=== PATIENT | male | born 1940 | race Asian ===

== ENCOUNTER 2016-02-25 07:48 | Emergency (ER) | payer OTHER ==
[2016-02-25 08:02] VITALS: BP 150/92; PULSE 112; TEMP 99; BMI 26.3
--- NOTE | 2016-02-25 09:10 | PDOC ---
History of Present Illness - General History Source: Patient, Old Records Exam Limitations: Language Barrier (load manager phone used for HPI and physical examination) <TarunottonielJodee - Last Filed: 02/25/16 11:02> - General History Source: Patient, Hand Mexican Food Maker Used Exam Limitations: No Limitations - History of Present Illness Initial Comments: 02/25/16 09:15 The patient is a 75 year old male, with no significant past medical history HTN , who presents today complaining of 1 day of difficulty urinating and lower abdominal pain. The patient states that his last urination was around midnight last night and felt it was difficult to push out. He denies dysuria. Prior to midnight he did not experience any urinary difficulty, but did feel lower abdominal pain. He states that he has experienced these symptoms 7 years ago, which led to prostate surgery. Denies fever, chills, nausea, vomiting. Denies back pain, flank pain. Denies chest pain, SOB. Allergies: None reported Social Hx: No tobacco use. No alcohol use. Medications: The patient states that he is on medication for his prostate and high blood pressure, but does not know the name of the medications. [facility] Nurse Practitioner ID: [id number] <Deborah Duncna - Last Filed: 02/25/16 11:49> - General Chief Complaint: Urinary Problem Stated Complaint: URINARY PROBLEM Time Seen by Provider: 02/25/16 08:47 Past History - Past Medical History Disorders: Yes (BPH) HTN: Yes - Psycho/Social/Smoking Cessation Hx Anxiety: No Suicidal Ideation: No Smoking History: Never smoked Have you smoked in the past 12 months: No Hx Alcohol Use: No Drug/Substance Use Hx: No Substance Use Type: None <Jodee Cheung - Last Filed: 02/25/16 11:02> <Deborah Duncan - Last Filed: 02/25/16 11:49> - Past Medical History Allergies/Adverse Reactions: Allergies Allergy/AdvReac Type Severity Reaction Status Date / Time No Known Allergies Allergy Verified 02/25/16 07:56 Home Medications: Ambulatory Orders Metoprolol Tartrate 25 mg PO DAILY 02/25/16 Valsartan/Hydrochlorothiazide [Valsartan-Hctz 80-12.5 mg Tab] 1 each PO DAILY Review of Systems - Review of Systems Able to Perform ROS?: Yes Comments:: 02/25/16 09:15 CONSTITUTIONAL: Absent: fever, no chills, no fatigue EYES: Absent: visual changes ENT: Absent: ear pain, no sore throat CARDIOVASCULAR: Absent: chest pain, no palpitations RESPIRATORY: Absent: cough, no SOB GI: Present: lower abdominal pain Absent: no nausea, no vomiting, no constipation, no diarrhea GENITOURINARY: Present: difficulty urinating Absent: dysuria, no frequency, no hematuria MUSCULOSKELETAL: Absent: back pain, no arthralgia, no myalgia SKIN: Absent: rash <Deborah Duncan - Last Filed: 02/25/16 11:49> *Physical Exam - Vital Signs Last Vital Signs Temp Pulse Resp BP Pulse Ox 99 F 112 H 16 150/92 93 L 02/25/16 07:57 02/25/16 07:57 02/25/16 07:57 02/25/16 07:57 02/25/16 07:57 <Jodee Cheung - Last Filed: 02/25/16 11:02> - Vital Signs Last Vital Signs Temp Pulse Resp BP Pulse Ox 99 F 112 H 16 150/92 93 L 02/25/16 07:57 02/25/16 07:57 02/25/16 07:57 02/25/16 07:57 02/25/16 07:57 - Physical Exam Comments: 02/25/16 09:16 GENERAL: Well-appearing, well-nourished. No apparent distress. HEENT: Normocephalic, atraumatic. PERRL, EOM intact. CARDIOVASCULAR: Normal S1, S2. Regular rate and rhythm. PULMONARY: Clear to auscultation bilaterally. ABDOMEN: Markedly distended bladder palpated at the level of the umbilicus. Soft, non- tender. RECTAL: Slightly decreased tone with brown stool. Prostate was not appreciated. EXTREMITIES: Trace to +1 bipedal edema. Normal ROM in all four extremities. No gross deformities. SKIN: Warm, dry. No rash NEUROLOGICAL: No focal neurological deficits. <Deborah Duncan - Last Filed: 02/25/16 11:49> ED Treatment Course - LABORATORY CBC & Chemistry Diagram: 02/25/16 09:30 02/25/16 09:30 <Jodee Cheung Last Filed: 02/25/16 11:02> - LABORATORY CBC & Chemistry Diagram: 02/25/16 09:30 02/25/16 09:30 <Deborah Duncan - Last Filed: 02/25/16 11:49> Medical Decision Making - Medical Decision Making 02/25/16 09:12 75-year-old male with history of hypertension and prostate disease in the past presents to the emergency Department with complaints of inability to urinate since midnight and lower abdominal pain. His bladder is distended. Differential diagnosis includes but is not limited to: Urinary retention secondary to prostatic enlargement, malignancy, BPH, UTI, renal failure. Plan: 1. Insert Centeno catheter 2. Urine analysis and urine culture 3. Labs 4. Pain management as needed 5. Observe and reevaluate 02/25/16 11:04 Addendum: Centeno catheter was inserted with 600 mL of urine output. The patient is feeling relieved. I've used the load manager hotline with a Yoruba fairing man to explain all of the patient's labs and urine analysis results with him. I've given him discharge instructions which include the fact that we are sending him home with a Centeno catheter in place and a leg bag. We discussed his follow-up with the urologist and decided that he would get a urologist through his primary care physician as he preferred a Yoruba speaking physician. I've advised the patient to follow-up with the urologist within 4-6 weeks and to return to the emergency department if his symptoms persist, worsen, or new symptoms arise. <Jodee Cheung - Last Filed: 02/25/16 11:02> - Medical Decision Making 02/25/16 11:11 Dr. Cheung utilized the load manager phones - Hand Mexican Food Maker [id number]- when reassessing the patient. The load manager phone - Hand Mexican Food Maker [id number]- was used when discharging the patient. <Deborah Duncan - Last Filed: 02/25/16 11:49> *DC/Admit/Observation/Transfer - Discharge Dispostion Admit: No - Attestations Physician Attestion: 02/25/16 09:13 I, Dr. Jodee Cheung, attest that the scribes documentation that appears above has been prepared under my direction and personally reviewed by me in its entirety. I confirmed that the note above accurately reflects all work, treatment, procedures, and medical decision-making performed by me. <Jodee Cheung - Last Filed: 02/25/16 11:02> - Attestations Scribe Attestion: 02/25/16 09:16 Documentation prepared by GRZEGORZ Yeager, acting as medical microbiologist for Jodee Cheung MD. <Deborah Duncan - Last Filed: 02/25/16 11:49> Diagnosis at time of Disposition: Urinary retention - Discharge Dispostion Disposition: HOME Condition at time of disposition: Stable - Referrals Referrals: Tanner Jackson MD [Primary Care Provider] - - Patient Instructions Printed Discharge Instructions: DI for Urinary Retention in Men, DI for Constipation Additional Instructions: You have urinary retention. You had a Centeno catheter in your penis in order to help you urinate. Leave the catheter in until you follow-up with her urologist. Please call your primary care physician for a referral to your urologist. Return to the emergency department if you have any symptoms that are persistent , worsen, or new symptoms arise. For your constipation please increase the amount of fiber that you have in your diet; that is, he green leafy vegetables, fruits, and many foods that are high in fiber. He may take [id number] fiber aide such as Metamucil or you may use a Dulcolax suppository.
[2016-02-25 09:30] LABS: URINE APPEARANCE CLEAR; URINE BILIRUBIN NEGATIVE (NEGATIVE); URINE COLOR LTYELLOW; URINE GLUCOSE (UA) NEGATIVE (NEGATIVE); URINE KETONE TRACE (NEGATIVE); URINE LEUK ESTERASE NEGATIVE (NEGATIVE); URINE NITRITE NEGATIVE (NEGATIVE); URINE PROTEIN NEGATIVE (NEGATIVE); URINE UROBILINOGEN NEGATIVE E.U./dl (0.2-1.0)
[2016-02-25 09:31] LABS: URINE BLOOD 1+ (NEGATIVE)
[2016-02-25 09:33] LABS: URINE MUCUS RARE; URINE RBC 5 /hpf (0-3); URINE WBC 1 /hpf (3-5)
[2016-02-25 09:39] LABS: BASOPHIL 0.7 % (0-2.0); EOSINOPHIL 0.1 % (0-4.5); MCH 32.7 pg (25.7-33.7); MCHC 34.2 g/dl (32.0-35.9); MEAN CELL VOLUME 95.5 fl (80-96); NEUTROPHILS 83.3 % (42.8-82.8); PLATELET COUNT 118 K/MM3 (134-434); RDW 13.5 % (11.9-15.9); WHITE BLOOD COUNT 7.3 K/mm3 (4.0-10.0)
[2016-02-25 09:58] LABS: CALCIUM 8.1 mg/dL (8.5-10.1); CREATININE 0.9 mg/dL (0.7-1.3); MAGNESIUM 2.1 mg/dL (1.8-2.4); PHOSPHOROUS 2.9 mg/dL (2.5-4.9)
--- NOTE | 2016-02-26 11:04 | EKG ---
Test Reason : Blood Pressure : / mmHG Vent. Rate : 093 BPM Atrial Rate : 093 BPM P-R Int : 182 ms QRS Dur : 104 ms QT Int : 356 ms P-R-T Axes : 031 -18 008 degrees QTc Int : 442 ms NORMAL SINUS RHYTHM NORMAL ECG NO PREVIOUS ECGS AVAILABLE Confirmed by DARRIN VILLASENOR, CANDIDO ([id number]) on 02/26/2016 11:04:38 AM Referred By: Confirmed By:CANDIDO CLIFFORD MD
== END 2016-02-25 11:47 | disposition home or self-care (01) ==
LOC: JER 07:48
PROC: 0T9B70Z Drainage of Bladder with Drainage Device, Via Natural or Artificial Opening (ICD-10-PCS; principal; 2016-02-25)
DX: R33.9 Retention of urine, unspecified (principal); I10 Essential (primary) hypertension
CPT/HCPCS: 36415; 51702; 80048; 81003; 81015; 83735; 84100; 85025; 87086; 93005; 93010; 99283-25

== ENCOUNTER 2018-07-12 09:52 | Observation (INO) | payer OTHER ==
--- NOTE | 2018-07-12 10:49 | PDOC ---
History of Present Illness - General Chief Complaint: Injury Stated Complaint: SENT BY PCP/ FALL Time Seen by Provider: 07/12/18 10:39 History Source: Patient, Spouse Exam Limitations: Language Barrier - History of Present Illness Initial Comments: 07/12/18 11:22 78 yo Sami speaking M with PMhx of HTN , COPD, and BPH presents s/p syncopal episode on 07/08/18. He states he read a book and was sitting in a chair when he had a coughing spell and passed out. He loss consciousness and hit his head. He was unconscious for approx 3 min and when he awoke he knew where he was and what had happened. witnessed fall and denies convulsion or lip smacking. He denies loss of bowel or bladder function. This happened to him 2 yrs prior and was seen here. He did not seek medical attention at that time but he continued to be dizzy over the weekend and went today to see his PMD who sent him here. He denies recent travel, recent illness or sick contacts. Denies CP, SOB, abdominal pain, urinary symptoms, fever or chills. Timing/Duration: momentarily Severity: moderate Associated Symptoms: reports: headaches, syncope, weakness Past History - Travel Traveled outside of the country in the last 30 days: No Close contact w/someone who was outside of country & ill: No - Past Medical History Allergies/Adverse Reactions: Allergies Allergy/AdvReac Type Severity Reaction Status Date / Time No Known Allergies Allergy Verified 07/12/18 10:17 Home Medications: Ambulatory Orders Metoprolol Tartrate 25 mg PO DAILY 02/25/16 Valsartan/Hydrochlorothiazide [Valsartan-Hctz 80-12.5 mg Tab] 1 each PO DAILY COPD: Yes Disorders: Yes (BPH) HTN: Yes - Immunization History Immunization Up to Date: Yes - Suicide/Smoking/Psychosocial Hx Smoking Status: No Smoking History: Never smoked Have you smoked in the past 12 months: No Hx Alcohol Use: No Drug/Substance Use Hx: No Substance Use Type: None *Physical Exam - Vital Signs Last Vital Signs Temp Pulse Resp BP Pulse Ox 98.3 F 79 18 140/85 95 07/12/18 10:11 07/12/18 10:11 07/12/18 10:11 07/12/18 10:11 07/12/18 10:11 ED Treatment Course - LABORATORY CBC & Chemistry Diagram: 07/12/18 12:21 07/12/18 12:23 Medical Decision Making - Medical Decision Making 07/12/18 12:52 78 yo M with PMhx of HTN, COPD, and BPH s/p syncopal episode and trauma to head. - Will obtain head and cervical spine CT -Patient signed out to Dr. Esther Pierson for continuation of care. *DC/Admit/Observation/Transfer Diagnosis at time of Disposition: Syncope Qualifiers: Syncope type: unspecified Qualified Code(s): R55 - Syncope and collapse - Referrals Referrals: Santi Naranjo MD [Primary Care Provider] - - Patient Instructions - Post Discharge Activity
[2018-07-12 12:45] LABS: BASO % 1.1 % (0-2.0); EOS % 1.1 % (0-4.5); HEMATOCRIT 40.6 % (35.4-49); HEMOGLOBIN 13.8 GM/dL (11.7-16.9); LYMPH % 25.1 % (8-40); MCH 32.8 pg (25.7-33.7); MCHC 33.9 g/dl (32.0-35.9); MEAN CELL VOLUME 96.7 fl (80-96); MEAN PLT VOLUME 8.4 fl (7.5-11.1); MONO % 7.7 % (3.8-10.2); PLATELET COUNT 132 K/MM3 (134-434); RDW 13.9 % (11.9-15.9); WHITE BLOOD COUNT 5.1 K/mm3 (4.0-10.0)
[2018-07-12 13:01] LABS: INR 0.91 (0.83-1.09); PROTHROMBIN TIME (PATIENT) 10.7 SEC (9.7-13.0)
[2018-07-12 13:04] LABS: ACTIVATED PTT 31.5 SECONDS (25.2-36.5)
[2018-07-12 13:12] LABS: ALBUMIN 3.6 g/dl (3.4-5.0); BILIRUBIN,TOTAL 0.6 mg/dL (0.2-1); CALCIUM 8.4 mg/dL (8.5-10.1); CREATININE 0.9 mg/dL (0.55-1.3); MAGNESIUM 2.4 mg/dL (1.8-2.4); POTASSIUM 4.3 mmol/L (3.5-5.1); TOT PROT 6.8 g/dl (6.4-8.2)
--- NOTE | 2018-07-12 13:22 | PDOC ---
Documentation entered by León James SCRIBE, acting as scribe for Yehuda Munoz MD. Yehuda Munoz MD: This documentation has been prepared by the Erika smith Renju, SCRIBE, under my direction and personally reviewed by me in its entirety. I confirm that the documentation accurately reflects all work, treatment, procedures, and medical decision making performed by me. Attending Attestation - Resident Resident Name: Too Clark - ED Attending Attestation I have performed the following: I have examined & evaluated the patient, The case was reviewed & discussed with the resident, I agree w/resident's findings & plan, Exceptions are as noted - HPI HPI: 07/12/18 12:50 78yo M hx HTN, COPD, and BPH sent in by PCP for evaluation s/p witnessed (by ) syncopal episode on Wednesday07/08/18. Patient states he was reading a book when he had a coughing spell and subsequently passed out falling out of his chair on Wednesday. states pt had LOC for 3 minutes without convulsions or incontinence. Pt endorses a 3 day hx of lightheadedness and unsteady gait. Pt visited PCP this morning who prompted him to visit ED for further evaluation. Denies any recent surgeries. Denies CP, SOB, headache, focal weakness/numbness, abd pain, N/V/D, LE edema. PCP: Dr. Naranjo - Physicial Exam PE: 07/12/18 12:51 GENERAL: Awake, alert, and fully oriented, in no acute distress HEAD: +raccoon eyes EYES: PERRLA, EOMI, sclera anicteric, conjunctiva clear ENT: Auricles normal inspection, hearing grossly normal, nares patent, oropharynx clear without exudates. Moist mucosa NECK: Normal ROM, supple, no lymphadenopathy, JVD, or masses LUNGS: Breath sounds equal, clear to auscultation bilaterally. No wheezes, and no crackles HEART: Regular rate and rhythm, normal S1 and S2, no murmurs, rubs or gallops ABDOMEN: Soft, nontender, normoactive bowel sounds. No guarding, no rebound. No masses EXTREMITIES: Normal range of motion, no edema. No cords, erythema, or tenderness BACK: No midline spinal tenderness in cervical/thoracic/lumbar region NEUROLOGICAL: Normal speech, cranial nerves intact, negative pronator drift, 5/ 5 strength in all 4 extremities, normal sensation to light touch in all 4 extremities, slow, non shuffling gait SKIN: Warm, Dry, normal turgor, no rashes or lesions noted. - Medical Decision Making 07/12/18 12:27 78yo M hx HTN, COPD, BPH presents to the ED after 3 minute syncopal episode 3 days ago with persistent lightheadness, and gait unsteadiness since. Vitals wnl, exam neurologically intact although pt with raccoon eyes. Will get dedicated facial and temporal bone imaging in addition to CTH/C-spine Given prolonged LOC ~ 3 mins per , + concern for arrhythmia as well Pt also c/o persistent dizziness and unsteady gait since the fall which could be 2/2 metabolic disarray vs ischemia vs CVA Anticipate admission
--- NOTE | 2018-07-12 13:37 | PDOC ---
*Physical Exam - Vital Signs Last Vital Signs Temp Pulse Resp BP Pulse Ox 98.3 F 79 18 140/85 95 07/12/18 10:11 07/12/18 10:11 07/12/18 10:11 07/12/18 10:11 07/12/18 10:11 - Physical Exam Comments: 07/12/18 13:35 Patient's care endorsed to me by Dr. Clark at the end of his shift. Patient is a 78 YOM Uzbek-speaking patient with h/o BPH, HTN, and ?history of COPD who presents 3 days after syncopal episode and fall onto face in the setting of coughing spell. He was reportedly unconscious for 3 minutes. Patient has b/l periorbital ecchymosis and needs temporal/facial bone CT. Heart Score/ECG Review #1 07/12/18 12:27 Sinus shona, rate 57, normal axis, old TWI in III, TW flattening in aVF, new TWI in V123 ED Treatment Course - LABORATORY CBC & Chemistry Diagram: 07/12/18 12:21 07/12/18 12:23 - ADDITIONAL ORDERS Additional order review: Laboratory Results 07/12/18 07/12/18 07/12/18 12:23 12:21 12:21 PT with INR 10.70 INR 0.91 PTT (Actin FS) 31.5 Sodium 141 Potassium 4.3 Chloride 109 H Carbon Dioxide 28 Anion Gap 4 L BUN 15 Creatinine 0.9 Est GFR (CKD-EPI)AfAm 94.48 Est GFR (CKD-EPI)NonAf 81.52 Random Glucose 89 Calcium 8.4 L Magnesium 2.4 Total Bilirubin 0.6 AST 22 ALT 36 Alkaline Phosphatase 58 Troponin I < 0.02 Total Protein 6.8 Albumin 3.6 07/12/18 12:21 RBC 4.20 MCV 96.7 H MCHC 33.9 RDW 13.9 MPV 8.4 Neutrophils % 65.0 D Lymphocytes % 25.1 D Monocytes % 7.7 D Eosinophils % 1.1 D Basophils % 1.1 - RADIOLOGY Radiology Studies Ordered: Category Date Time Status FACIAL BONES CT W/O CONTRAST [CT] Stat CT Scan 07/12/18 13:[address] W/O CONTRAST [CT] Stat CT Scan 07/12/18 13:21 Ordered Medical Decision Making - Medical Decision Making EKG: Reviewed, new TWI compared with 2017. CT Head/C-spine shows nothing acute. CT Temporal/Facial bones shows opacified sinus/middle ear but no obvious fxr. 07/12/18 16:30 The Pt is unsafe for discharge at this time. They require further hospital observation, workup, and treatment. Microblog sent to [facility] for admission. Blank Decision to Admit order is placed per ED protocol. *DC/Admit/Observation/Transfer Diagnosis at time of Disposition: T wave inversion in EKG Syncope Qualifiers: Syncope type: unspecified Qualified Code(s): R55 - Syncope and collapse Facial trauma Qualifiers: Encounter type: initial encounter Qualified Code(s): S09.93XA - Unspecified injury of face, initial encounter - Discharge Dispostion Condition at time of disposition: Guarded Decision to Admit order: Yes - Referrals Referrals: Santi Naranjo MD [Primary Care Provider] - - Patient Instructions - Post Discharge Activity
--- NOTE | 2018-07-12 15:58 | EKG ---
Test Reason : Blood Pressure : / mmHG Vent. Rate : 057 BPM Atrial Rate : 057 BPM P-R Int : 180 ms QRS Dur : 088 ms QT Int : 422 ms P-R-T Axes : 065 -17 001 degrees QTc Int : 410 ms SINUS BRADYCARDIA ABNORMAL ECG WHEN COMPARED WITH ECG OF 25-FEB-2016 09:40, VENT. RATE HAS DECREASED BY 36 BPM Confirmed by Rigoberto Chu ([id number]) on 07/12/2018 3:57:38 PM Referred By: Confirmed By:Rigoberto Chu
[2018-07-12] MEDS ORDERED: ACETAMINOPHEN 325 MG TABLET (FP) PO PRN (17:13)
--- NOTE | 2018-07-12 17:23 | HP ---
Admitting History and Physical - Primary Care Physician PCP: Santi Naranjo - Admission Chief Complaint: dizziness, syncopal episode History of Present Illness: 78 year old M with h/o HTN and BPH who presents today complaining of syncopal episode which occurred on July 08. Mr. Solano reports being seated and watching TV when he began to experience dizziness for several seconds followed by LOC. Pt fell forward and hit his face. As per pt his states he was unconscious for approximately 3mins. He endorses a similar episode in 2014 when he presented to [facility] for evaluation due to a fall which he now states was related to feeling dizzy while pushing his shopping cart. Pt reports he has been experiencing "dizzy spells" on an almost daily basis over the last but has not lost consciousness. He has never been evaluated by neurology or cardiology. Patient denies headaches/N/V/D/seizure activity or speech impairments. Pt denies loss of bowel or bladder function. He denies recent travel, recent illness or sick contacts. Denies CP,SOB, abdominal pain, urinary symptoms, fever or chills. Due to persistent dizziness and unsteady gait, he decided to present to his PCP for evaluation. After relating incident to primary care provider, pt was encouraged to seek medical attention in the ED. In ED: Vitals were HR 88bpm, T 97.2, BP 143/97, RR 18, O2 sat 95%. Head CT negative. Facial CT: no fracture Labs: unremarkable Pt admitted for observation and further work-up. History Source: Patient (Thai phone [employer] used) Limitations to Obtaining History: Language Barrier - Past Medical History Cardiovascular: Yes: HTN - Past Surgical History Past Surgical History: Yes: None - Smoking History Smoking history: Former smoker (3cig per day x 3yrs while in [employer], d/ yury > 50yrs ago) Have you smoked in the past 12 months: No - Alcohol/Substance Use Hx Alcohol Use: No History of Substance Use: reports: None - Social History Usual Living Arrangement: Yes: With Spouse ADL: Family Assistance Occupation: Previously worked in [employer]. now retired History of Recent Travel: No Home Medications - Allergies Allergies/Adverse Reactions: Allergies Allergy/AdvReac Type Severity Reaction Status Date / Time No Known Allergies Allergy Verified 07/12/18 10:17 - Home Medications Home Medications: Ambulatory Orders Metoprolol Tartrate 25 mg PO DAILY 02/25/16 Valsartan/Hydrochlorothiazide [Valsartan-Hctz 80-12.5 mg Tab] 1 each PO DAILY Family Disease History - Family Disease History Family Disease History: Other: Father ( (58) "threw up blood and ") , Mother ( (75) depression), Brother ( (60) lung disease) Review of Systems - Review of Systems Constitutional: reports: No Symptoms Eyes: reports: No Symptoms HENT: reports: No Symptoms Neck: reports: No Symptoms Cardiovascular: reports: No Symptoms Respiratory: reports: No Symptoms Gastrointestinal: reports: No Symptoms Genitourinary: reports: No Symptoms Breasts: reports: No Symptoms Reported Musculoskeletal: reports: Muscle Weakness (Legs) Integumentary: reports: No Symptoms Neurological: reports: Dizziness, Syncope, Unsteady Gait Endocrine: reports: No Symptoms Hematology/Lymphatic: reports: No Symptoms Psychiatric: reports: No Symptoms Physical Examination Vital Signs: Vital Signs Temperature 97.6 F 07/12/18 16:35 Pulse Rate 59 L 07/12/18 16:35 Respiratory Rate 18 07/12/18 16:35 Blood Pressure 128/76 07/12/18 16:35 O2 Sat by Pulse Oximetry (%) 98 07/12/18 16:35 Constitutional: Yes: Well Nourished, No Distress, Calm Eyes: Yes: Conjunctiva Clear, EOM Intact, PERRL HENT: Yes: Normocephalic, Other (poor dentition, periorbital ecchymosis) Cardiovascular: Yes: Bradycardia, S1, S2 Respiratory: Yes: Regular, CTA Bilaterally Gastrointestinal: Yes: Normal Bowel Sounds, Soft ...Rectal Exam: Yes: Deferred Musculoskeletal: Yes: Muscle Weakness (poor tone and strength b/l LEs) Extremities: Yes: WNL Edema: No Peripheral Pulses WNL: Yes Peripheral Pulses: Left Radial: 2+, Right Radial: 2+, Left Doralis Pedis: 2+, Right Dorsalis Pedis: 2+ Integumentary: Yes: WNL Neurological: Yes: Alert, Oriented, Tremors (essential tremrs), Unsteady Gait, Weakness ...Motor Strength: LLE, RLE Psychiatric: Yes: Alert, Oriented Labs: CBC, BMP 07/12/18 12:21 07/12/18 12:23 Imaging - Results X-ray: Report Reviewed ( CXR 07/12/2018:Impression: No evidence of active pulmonary disease. Cardiomegaly. No pneumothorax, or large pleural effusion is seen. Reported By: Thomas Griffin MD 07/12/18 [id number]) Cat Scan: Report Reviewed (CT spine 07/12/2018 IMPRESSION: No fracture is identified. Similar to a [address] study there is almost complete opacification of the left mastoid air cells and partial opacification of the left middle ear cavity consistent with otomastoiditis - ? persistent versus recurrent in nature. Several subcutaneous linear metallic densities are seen bilaterally at the level of the lower posterior neck and partially imaged upper posterior chest. Correlate clinically.), Other ( CT Head 07/12 IMPRESSION: No CT evidence of acute intracranial pathology. There has been no definite interval change in comparison to a prior CT exam of 2014. Mild bilateral cerebellar atrophy. Note is again made of left otomastoiditis - ? persistent versus recurrent in nature. Correlate clinically. There is again visualization of several subcutaneous linear metallic densities along the parieto-occipital regions bilaterally - ? etiology. Reported By: Mehdi Sloan MD) EKG: Image Reviewed (EKG 07/12/2018 (my read) SB 57bpm TWI V1-3. normal axis.) Other: Report Reviewed (CT facial 07/12/2018 IMPRESSION: Evaluation of the left temporal bone demonstrates almost totally opacified left mastoid air cells and partial opacification of the left middle ear suspicious for mastoiditis and otitis media. Inner ear structures appear to be intact. No focal bone destruction or fracture is identified. Evaluation of the right temporal bone appears unremarkable. Reported By: Patrick Cobian MD 07/12/18 [id number]), Other ( CT Temporal bones 07/12/2018 IMPRESSION: Evaluation of the left temporal bone demonstrates almost totally opacified left mastoid air cells and partial opacification of the left middle ear suspicious for mastoiditis and otitis media. Inner ear structures appear to be intact. No focal bone destruction or fracture is identified. Evaluation of the right temporal bone appears unremarkable. Reported By: Patrick Cobian MD 07/12/18 0751) Problem List - Problems (1) ST segment changes on electrocardiogram Assessment/Plan: serial cardiac enzymes Routine echo cards consult start ASA 81mg daily Code(s): R94.31 - ABNORMAL ELECTROCARDIOGRAM [ECG] [EKG] (2) HTN (hypertension) Assessment/Plan: valsartan 80mg daily HCTZ 12.5mg daily hold metoprolol due to recent syncope cardiac diet Code(s): I10 - ESSENTIAL (PRIMARY) HYPERTENSION (3) Prophylactic measure Assessment/Plan: Heparin SC TID bowel regimen with senna/colace OOB to chair ambulate with cane and 1 person assist due to fall risk Code(s): Z29.9 - ENCOUNTER FOR PROPHYLACTIC MEASURES, UNSPECIFIED (4) Dizziness Assessment/Plan: neuro and ENT consult placed hold BB admit to tele floor carotid doppler and echo ordered orthostatic vitals Code(s): R42 - DIZZINESS AND GIDDINESS (5) Need for assistance due to unsteady gait Assessment/Plan: pt needs 1 person assist due to fall risk Code(s): R26.89 - OTHER ABNORMALITIES OF GAIT AND MOBILITY Assessment/Plan Code status: Full (confirmed with patient) Visit type - Emergency Visit Emergency Visit: Yes ED Registration Date: 07/12/18 Care time: The patient presented to the Emergency Department on the above date and was hospitalized for further evaluation of their emergent condition. - New Patient This patient is new to me today: Yes Date on this admission: 07/12/18 - Critical Care Critical Care patient: No
--- NOTE | 2018-07-12 23:21 | CON.CARD ---
Consult Consult Specialty:: Cardiology - History of Present Illness Chief Complaint: syncope History of Present Illness: 78 year old M with h/o HTN and BPH who presents today complaining of syncopal episode which occurred on July 08. Mr. Solano reports being seated and watching TV when he began to experience dizziness for several seconds followed by LOC. Pt fell forward and hit his face. As per pt his states he was unconscious for approximately 3mins. He endorses a similar episode in 2014 when he presented to [facility] for evaluation due to a fall which he now states was related to feeling dizzy while pushing his shopping cart. Pt reports he has been experiencing "dizzy spells" on an almost daily basis over the last but has not lost consciousness. He has never been evaluated by neurology or cardiology. Patient denies headaches/N/V/D/seizure activity or speech impairments. Pt denies loss of bowel or bladder function. He denies recent travel, recent illness or sick contacts. Denies CP,SOB, abdominal pain, urinary symptoms, fever or chills. Due to persistent dizziness and unsteady gait, he decided to present to his PCP for evaluation. After relating incident to primary care provider, pt was encouraged to seek medical attention in the ED. In ED: Vitals were HR 88bpm, T 97.2, BP 143/97, RR 18, O2 sat 95%. Head CT negative. Facial CT: no fracture Labs: unremarkable - Past Medical History Cardio/Vascular: Yes: HTN - Past Surgical History Past Surgical History: Yes: None - Alcohol/Substance Use Hx Alcohol Use: No History of Substance Use: reports: None - Smoking History Smoking history: Former smoker (3cig per day x 3yrs while in [employer], d/ yury > 50yrs ago) Have you smoked in the past 12 months: No - Social History ADL: Family Assistance Occupation: Previously worked in [employer]. now retired History of Recent Travel: No Home Medications - Allergies Allergies/Adverse Reactions: Allergies Allergy/AdvReac Type Severity Reaction Status Date / Time No Known Allergies Allergy Verified 07/12/18 10:17 - Home Medications Home Medications: Ambulatory Orders Metoprolol Tartrate 25 mg PO DAILY 02/25/16 Valsartan/Hydrochlorothiazide [Valsartan-Hctz 80-12.5 mg Tab] 1 each PO DAILY Family Disease History - Family Disease History Family Disease History: Other: Father ( (58) "threw up blood and ") , Mother ( (75) depression), Brother ( (60) lung disease) Review of Systems - Review of Systems Constitutional: reports: No Symptoms Eyes: reports: No Symptoms HENT: reports: No Symptoms Neck: reports: No Symptoms Cardiovascular: reports: No Symptoms Gastrointestinal: reports: No Symptoms Genitourinary: reports: No Symptoms Breasts: reports: No Symptoms Reported Musculoskeletal: reports: No Symptoms Integumentary: reports: No Symptoms Neurological: reports: Syncope Endocrine: reports: No Symptoms Hematology/Lymphatic: reports: No Symptoms Psychiatric: reports: No Symptoms Vital Signs: Vital Signs Temperature 97.6 F 07/12/18 16:35 Pulse Rate 59 L 07/12/18 16:35 Respiratory Rate 18 07/12/18 16:35 Blood Pressure 128/76 07/12/18 16:35 O2 Sat by Pulse Oximetry (%) 98 07/12/18 16:35 Constitutional: Yes: Well Nourished, No Distress, Calm Eyes: Yes: WNL, Conjunctiva Clear, EOM Intact HENT: Yes: WNL, Atraumatic, Normocephalic Neck: Yes: WNL, Supple, Trachea Midline Respiratory: Yes: WNL, Regular, CTA Bilaterally Gastrointestinal: Yes: WNL, Normal Bowel Sounds Renal/: Yes: WNL Cardiovascular: Yes: WNL, Regular Rate and Rhythm Musculoskeletal: Yes: WNL Extremities: Yes: WNL Integumentary: Yes: WNL Neurological: Yes: WNL, Alert, Oriented ...Motor Strength: WNL Psychiatric: Yes: WNL, Alert, Oriented - Other Data Labs, Other Data: CBC, BMP 07/12/18 12:21 07/12/18 12:23 INR, PTT INR 0.91 (0.83-1.09) 07/12/18 12:21 Troponin, BNP 07/12/18 12:21 Troponin I < 0.02 Troponin, BNP 07/12/18 12:21 Troponin I < 0.02 Imaging - Results Chest X-ray: Image Reviewed (no i/e) EKG: Image Reviewed (s shona rep abn inverted t wave v1-v3) Problem List - Problems (1) Dizziness Code(s): R42 - DIZZINESS AND GIDDINESS (2) Facial trauma Code(s): S09.93XA - UNSPECIFIED INJURY OF FACE, INITIAL ENCOUNTER Qualifiers: Encounter type: initial encounter Qualified Code(s): S09.93XA - Unspecified injury of face, initial encounter (3) HTN (hypertension) Code(s): I10 - ESSENTIAL (PRIMARY) HYPERTENSION (4) Need for assistance due to unsteady gait Code(s): R26.89 - OTHER ABNORMALITIES OF GAIT AND MOBILITY (5) Prophylactic measure Code(s): Z29.9 - ENCOUNTER FOR PROPHYLACTIC MEASURES, UNSPECIFIED (6) ST segment changes on electrocardiogram Code(s): R94.31 - ABNORMAL ELECTROCARDIOGRAM [ECG] [EKG] (7) Syncope Code(s): R55 - SYNCOPE AND COLLAPSE Qualifiers: Syncope type: unspecified Qualified Code(s): R55 - Syncope and collapse (8) T wave inversion in EKG Code(s): R94.31 - ABNORMAL ELECTROCARDIOGRAM [ECG] [EKG] (9) Abrasion Code(s): T14.8 - OTHER INJURY OF UNSPECIFIED BODY REGION * DO NOT USE * (10) Multiple contusions Code(s): T14.8 - OTHER INJURY OF UNSPECIFIED BODY REGION * DO NOT USE * (11) Urinary retention Code(s): R33.9 - RETENTION OF URINE, UNSPECIFIED Assessment/Plan syncope htn bph abn ekg echo r/o mi neuro eval
[2018-07-13] MEDS ORDERED: HEPARIN NA (PORCINE) 5,000 UNITS/ML 1ML VIAL ONE ×2 (00:30→06:19)
[2018-07-13] MEDS ORDERED: DOCUSATE SODIUM 100 MG CAPSULE (FP) PO ONE (00:30)
[2018-07-13] MEDS: DOCUSATE SODIUM 100 MG CAPSULE (FP) PO SCH ×2 (00:35→21:24)
[2018-07-13] MEDS: HEPARIN NA (PORCINE) 5,000 UNITS/ML 1ML VIAL SQ SCH ×4 (00:35→21:24)
[2018-07-13] MEDS: SENNOSIDES 8.6MG TABLET (FP) PO SCH ×2 (00:35→21:24)
[2018-07-13 06:43] LABS: EOS % 2.8 % (0-4.5); HEMATOCRIT 36.9 % (35.4-49); HEMOGLOBIN 12.8 GM/dL (11.7-16.9); LYMPH % 32.8 % (8-40); MCH 33.2 pg (25.7-33.7); MCHC 34.7 g/dl (32.0-35.9); MEAN CELL VOLUME 95.5 fl (80-96); NEUT % 53.4 % (42.8-82.8); PLATELET COUNT 133 K/MM3 (134-434); RBC 3.86 M/mm3 (4.00-5.60); WHITE BLOOD COUNT 3.6 K/mm3 (4.0-10.0)
[2018-07-13 07:26] LABS: ALK PHOS 53 U/L (45-117); ANION GAP 4 MMOL/L (8-16); BILIRUBIN,TOTAL 0.4 mg/dL (0.2-1); BLOOD UREA NITROGEN 18 mg/dL (7-18); CALCIUM 7.7 mg/dL (8.5-10.1); CHLORIDE 111 mmol/L (98-107); CHOLESTEROL 145 mg/dL (50-200); CO2 26 mmol/L (21-32); CREATININE 0.8 mg/dL (0.55-1.3); GLUCOSE,RANDOM 87 mg/dL (74-106); HDL CHOLESTEROL 25 mg/dL (40-60); PHOSPHOROUS 3.3 mg/dL (2.5-4.9); POTASSIUM 4.1 mmol/L (3.5-5.1); SGOT/AST 21 U/L (15-37); SGPT/ALT 33 U/L (13-61); SODIUM 141 mmol/L (136-145); TOT PROT 5.9 g/dl (6.4-8.2); TRIGLYCERIDES 213 mg/dL (0-150)
--- NOTE | 2018-07-13 08:51 | CONSULT ---
Consult - text type - Consultation Consultation Note: Neurology - Admission Chief Complaint: dizziness, syncopal episode History of Present Illness: 78 year old M with h/o HTN and BPH who presented on day of admission, complaining of syncopal episode which occurred on July 08. Mr. Solano reports being seated and watching TV when he began to experience dizziness for several seconds followed by LOC. Pt fell forward and hit his face. As per pt's , stated he was unconscious for approximately 3mins. He endorsed a similar episode in 2014 when he presented to [facility] for evaluation due to a fall which he now states was related to feeling dizzy while pushing his shopping cart. Pt reported he has been experiencing "dizzy spells" on an almost daily basis but has not lost consciousness. He has never been evaluated by neurology or cardiology. Patient denied headaches/N/V/D/seizure activity or speech impairments. Pt denied loss of bowel or bladder function. He denied recent travel, recent illness or sick contacts. Denied CP,SOB, abdominal pain, urinary symptoms, fever or chills. Due to persistent dizziness and unsteady gait, he decided to present to his PCP for evaluation. After relating incident to primary care provider, pt was encouraged to seek medical attention in the ED. Head CT completed with mild bilateral cerebellar atrophy. CT of the facial and temporal bone completed, with opacified left mastoid air cells and partial opacification of the left middle ear - suspicious for mastoiditis and otitis media. Cervical Spine CT completed with multilevel degenerative disc and facet joint changes. Patient was having carotid Dopplers during my evaluation and did not demonstrate any significant deficits. Agree with ultrasound in the context of syncope. Do not feel he requires an MRI at this pointbased on lack of deficits on exam and clinically been stable. - Past Medical History Cardiovascular: Yes: HTN - Past Surgical History Past Surgical History: Yes: None - Smoking History Smoking history: Former smoker (3cig per day x 3yrs while in [employer], d/ yury > 50yrs a Have you smoked in the past 12 months: No - Alcohol/Substance Use Hx Alcohol Use: No History of Substance Use: reports: None - Social History Usual Living Arrangement: Yes: With Spouse ADL: Family Assistance Occupation: Previously worked in [employer]. now retired History of Recent Travel: No Home Medications - Allergies Allergies/Adverse Reactions: Allergies Allergy/AdvReac Type Severity Reaction Status Date / Time No Known Allergies Allergy Verified 07/12/18 10:17 - Home Medications Home Medications: Ambulatory Orders Metoprolol Tartrate 25 mg PO DAILY 02/25/16 Valsartan/Hydrochlorothiazide [Valsartan-Hctz 80-12.5 mg Tab] 1 each PO DAILY Family Disease History - Family Disease History Family Disease History: Other: Father ( (58) "threw up blood and ") , Mother ( (75) depression), Brother ( (60) lung disease) Review of Systems - Review of Systems Constitutional: reports: No Symptoms Eyes: reports: No Symptoms HENT: reports: No Symptoms Neck: reports: No Symptoms Cardiovascular: reports: No Symptoms Respiratory: reports: No Symptoms Gastrointestinal: reports: No Symptoms Genitourinary: reports: No Symptoms Breasts: reports: No Symptoms Reported Musculoskeletal: reports: Muscle Weakness (Legs) Integumentary: reports: No Symptoms Neurological: reports: Dizziness, Syncope, Unsteady Gait Endocrine: reports: No Symptoms Hematology/Lymphatic: reports: No Symptoms Psychiatric: reports: No Symptoms Physical Examination Vital Signs Temperature 98.1 F 07/13/18 08:03 Pulse Rate 59 L 07/13/18 08:03 Respiratory Rate 17 07/13/18 08:03 Blood Pressure 120/68 07/13/18 08:03 O2 Sat by Pulse Oximetry (%) 97 07/13/18 08:04 Constitutional: Yes: Well Nourished, No Distress, Calm Eyes: Yes: Conjunctiva Clear, EOM Intact, PERRL HENT: Yes: Normocephalic, Other (poor dentition, periorbital ecchymosis) Cardiovascular: Yes: Bradycardia, S1, S2 Respiratory: Yes: Regular, CTA Bilaterally Gastrointestinal: Yes: Normal Bowel Sounds, Soft ...Rectal Exam: Yes: Deferred Musculoskeletal: Yes: Muscle Weakness (poor tone and strength b/l LEs) Extremities: Yes: WNL Edema: No Peripheral Pulses WNL: Yes Peripheral Pulses: Left Radial: 2+, Right Radial: 2+, Left Doralis Pedis: 2+, Right Dorsalis Pedis: 2+ Integumentary: Yes: WNL Neurological: cranial nerves intact, no facial droop, no slurred speech, strength intact bilaterally in upper and lower extremities, sensory intact, [id number] normal CBCD WBC 3.6 K/mm3 (4.0-10.0) L 07/13/18 06:00 RBC 3.86 M/mm3 (4.00-5.60) L 07/13/18 06:00 Hgb 12.8 GM/dL (11.7-16.9) 07/13/18 06:00 Hct 36.9 % (35.4-49) 07/13/18 06:00 MCV 95.5 fl (80-96) 07/13/18 06:00 MCHC 34.7 g/dl (32.0-35.9) 07/13/18 06:00 RDW 14.0 % (11.9-15.9) 07/13/18 06:00 Plt Count 133 K/MM3 (134-434) L 07/13/18 06:00 MPV 8.0 fl (7.5-11.1) 07/13/18 06:00 CMP Sodium 141 mmol/L (136-145) 07/13/18 06:00 Potassium 4.1 mmol/L (3.5-5.1) 07/13/18 06:00 Chloride 111 mmol/L (98-107) H 07/13/18 06:00 Carbon Dioxide 26 mmol/L (21-32) 07/13/18 06:00 Anion Gap 4 MMOL/L (8-16) L 07/13/18 06:00 BUN 18 mg/dL (7-18) 07/13/18 06:00 Creatinine 0.8 mg/dL (0.55-1.3) 07/13/18 06:00 Random Glucose 87 mg/dL (74-106) 07/13/18 06:00 Calcium 7.7 mg/dL (8.5-10.1) L 07/13/18 06:00 Total Bilirubin 0.4 mg/dL (0.2-1) 07/13/18 06:00 AST 21 U/L (15-37) 07/13/18 06:00 ALT 33 U/L (13-61) 07/13/18 06:00 Alkaline Phosphatase 53 U/L (45-117) 07/13/18 06:00 Total Protein 5.9 g/dl (6.4-8.2) L 07/13/18 06:00 Albumin 3.0 g/dl (3.4-5.0) L 07/13/18 06:00 CARDIAC ENZYMES Creatine Kinase 65 U/L (26-308) 07/13/18 06:00 Troponin I < 0.02 ng/ml (0.00-0.05) 07/13/18 06:[address] - completed, bilateral cerebellar atrophy Cervical Spine CT - completed, opacified left mastoid air cells and partial opacification of the left middle ear - suspicious for mastoiditis and otitis media Facial and Temporal CT - completed, multilevel degenerative disc and facet joint changes ASSESSMENT/PLAN 78 year old M with h/o HTN and BPH who presented on day of admission, complaining of syncopal episode which occurred on July 08. Mr. Solano reports being seated and watching TV when he began to experience dizziness for several seconds followed by LOC. Pt fell forward and hit his face. As per pt's , stated he was unconscious for approximately 3mins. He endorsed a similar episode in 2014 when he presented to [facility] for evaluation due to a fall which he now states was related to feeling dizzy while pushing his shopping cart. Pt reported he has been experiencing "dizzy spells" on an almost daily basis but has not lost consciousness. He has never been evaluated by neurology or cardiology. Patient denied headaches/N/V/D/seizure activity or speech impairments. Pt denied loss of bowel or bladder function. He denied recent travel, recent illness or sick contacts. Denied CP,SOB, abdominal pain, urinary symptoms, fever or chills. Due to persistent dizziness and unsteady gait, he decided to present to his PCP for evaluation. After relating incident to primary care provider, pt was encouraged to seek medical attention in the ED. Head CT completed with mild bilateral cerebellar atrophy. CT of the facial and temporal bone completed, with opacified left mastoid air cells and partial opacification of the left middle ear - suspicious for mastoiditis and otitis media. Cervical Spine CT completed with multilevel degenerative disc and facet joint changes. Patient was having carotid Dopplers during my evaluation and did not demonstrate any significant deficits. Agree with ultrasound in the context of syncope. Do not feel he requires an MRI at this point, based on lack of deficits on exam and clinically been stable. ollow-up cardiology workup, hydration recommended, monitor blood pressure and maintain normotensive range.
[2018-07-13] MEDS: ASPIRIN 81 MG CHEWABLE TABLETS PO SCH (09:03)
[2018-07-13] MEDS ORDERED: HYDROCHLOROTHIAZIDE 12.5 MG CAPSULE (FP) PO SCH (10:00)
[2018-07-13] MEDS ORDERED: VALSARTAN 80 MG TABLET (UD) PO ONE (10:00)
[2018-07-13] MEDS ORDERED: METOPROLOL TARTRATE 25 MG TABLET (FP) PO SCH ×2 (10:00→15:00)
--- NOTE | 2018-07-13 12:40 | PN ---
Progress Note, Physician History of Present Illness: 78 year old M with h/o HTN and BPH who presents today complaining of syncopal episode which occurred on July 08. Mr. Solano reports being seated and watching TV when he began to experience dizziness for several seconds followed by LOC. Pt fell forward and hit his face. As per pt his states he was unconscious for approximately 3mins. He endorses a similar episode in 2014 when he presented to [facility] for evaluation due to a fall which he now states was related to feeling dizzy while pushing his shopping cart. Pt reports he has been experiencing "dizzy spells" on an almost daily basis over the last but has not lost consciousness. He has never been evaluated by neurology or cardiology. Patient denies headaches/N/V/D/seizure activity or speech impairments. Pt denies loss of bowel or bladder function. He denies recent travel, recent illness or sick contacts. Denies CP,SOB, abdominal pain, urinary symptoms, fever or chills. Due to persistent dizziness and unsteady gait, he decided to present to his PCP for evaluation. After relating incident to primary care provider, pt was encouraged to seek medical attention in the ED. In ED: Vitals were HR 88bpm, T 97.2, BP 143/97, RR 18, O2 sat 95%. Head CT negative. Facial CT: no fracture Labs: unremarkable - Current Medication List Current Medications: Active Medications Acetaminophen (Tylenol -) 650 mg PO Q6H PRN PRN Reason: PAIN LEVEL 4 - 6 Aspirin (Asa -) 81 mg PO DAILY [facility] Last Admin: 07/13/18 09:03 Dose: 81 mg Docusate Sodium (Colace -) 100 mg PO HS [facility] Last Admin: 07/13/18 00:35 Dose: 100 mg Heparin Sodium (Porcine) (Heparin -) 5,000 unit SQ TID [facility] Last Admin: 07/13/18 06:35 Dose: 5,000 unit Hydrochlorothiazide (Hctz -) 12.5 mg PO DAILY [facility] Last Admin: 07/13/18 09:03 Dose: 12.5 mg Senna (Senna -) 2 tab PO HS [facility] Last Admin: 07/13/18 00:35 Dose: 2 tab - Objective Vital Signs: Vital Signs Temperature 98.1 F 07/13/18 08:03 Pulse Rate 59 L 07/13/18 08:03 Respiratory Rate 17 07/13/18 08:03 Blood Pressure 120/68 07/13/18 08:03 O2 Sat by Pulse Oximetry (%) 97 07/13/18 08:04 Eyes: Yes: WNL, Conjunctiva Clear, EOM Intact HENT: Yes: WNL, Atraumatic, Normocephalic Neck: Yes: WNL, Supple, Trachea Midline Cardiovascular: Yes: WNL, Regular Rate and Rhythm Respiratory: Yes: WNL, Regular, CTA Bilaterally Gastrointestinal: Yes: WNL, Normal Bowel Sounds Genitourinary: Yes: WNL Musculoskeletal: Yes: WNL Extremities: Yes: WNL Edema: No Integumentary: Yes: WNL Neurological: Yes: WNL, Alert, Oriented ...Motor Strength: WNL Psychiatric: Yes: WNL Labs: CBC, BMP 07/13/18 06:00 07/13/18 06:00 INR, PTT INR 0.91 (0.83-1.09) 07/12/18 12:21 Laboratory Tests 07/12/18 07/12/18 07/12/18 12:21 12:21 12:21 WBC 5.1 RBC 4.20 Hgb 13.8 Hct 40.6 MCV 96.7 H MCH 32.8 MCHC 33.9 RDW 13.9 Plt Count 132 L MPV 8.4 Absolute Neuts (auto) 3.3 Neutrophils % 65.0 D Lymphocytes % 25.1 D Monocytes % 7.7 D Eosinophils % 1.1 D Basophils % 1.1 Nucleated RBC % 0 PT with INR 10.70 INR 0.91 PTT (Actin FS) 31.5 Sodium Potassium Chloride Carbon Dioxide Anion Gap BUN Creatinine Est GFR (CKD-EPI)AfAm Est GFR (CKD-EPI)NonAf Random Glucose Hemoglobin A1c % Calcium Phosphorus Magnesium Total Bilirubin AST ALT Alkaline Phosphatase Creatine Kinase Troponin I < 0.02 Total Protein Albumin Triglycerides Cholesterol Total LDL Cholesterol HDL Cholesterol TSH Free T4 07/12/18 07/13/18 07/13/18 12:23 06:00 06:00 WBC 3.6 L RBC 3.86 L Hgb 12.8 Hct 36.9 MCV 95.5 MCH 33.2 MCHC 34.7 RDW 14.0 Plt Count 133 L MPV 8.0 Absolute Neuts (auto) 1.9 Neutrophils % 53.4 Lymphocytes % 32.8 D Monocytes % 10.0 Eosinophils % 2.8 D Basophils % 1.0 Nucleated RBC % 0 PT with INR INR PTT (Actin FS) Sodium 141 141 Potassium 4.3 4.1 Chloride 109 H 111 H Carbon Dioxide 28 26 Anion Gap 4 L 4 L BUN 15 18 Creatinine 0.9 0.8 Est GFR (CKD-EPI)AfAm 94.48 99.17 Est GFR (CKD-EPI)NonAf 81.52 85.56 Random Glucose 89 87 Hemoglobin A1c % Calcium 8.4 L 7.7 L Phosphorus 3.3 Magnesium 2.4 Total Bilirubin 0.6 0.4 AST 22 21 ALT 36 33 Alkaline Phosphatase 58 53 Creatine Kinase 65 Troponin I < 0.02 Total Protein 6.8 5.9 L Albumin 3.6 3.0 L Triglycerides 213 H Cholesterol 145 Total LDL Cholesterol 86 HDL Cholesterol 25 L TSH 4.58 H Free T4 1.02 07/13/18 06:00 WBC RBC Hgb Hct MCV MCH MCHC RDW Plt Count MPV Absolute Neuts (auto) Neutrophils % Lymphocytes % Monocytes % Eosinophils % Basophils % Nucleated RBC % PT with INR INR PTT (Actin FS) Sodium Potassium Chloride Carbon Dioxide Anion Gap BUN Creatinine Est GFR (CKD-EPI)AfAm Est GFR (CKD-EPI)NonAf Random Glucose Hemoglobin A1c % 5.4 Calcium Phosphorus Magnesium Total Bilirubin AST ALT Alkaline Phosphatase Creatine Kinase Troponin I Total Protein Albumin Triglycerides Cholesterol Total LDL Cholesterol HDL Cholesterol TSH Free T4 Problem List - Problems (1) Dizziness Code(s): R42 - DIZZINESS AND GIDDINESS (2) Facial trauma Code(s): S09.93XA - UNSPECIFIED INJURY OF FACE, INITIAL ENCOUNTER Qualifiers: Encounter type: initial encounter Qualified Code(s): S09.93XA - Unspecified injury of face, initial encounter (3) HTN (hypertension) Code(s): I10 - ESSENTIAL (PRIMARY) HYPERTENSION (4) Need for assistance due to unsteady gait Code(s): R26.89 - OTHER ABNORMALITIES OF GAIT AND MOBILITY (5) Prophylactic measure Code(s): Z29.9 - ENCOUNTER FOR PROPHYLACTIC MEASURES, UNSPECIFIED (6) ST segment changes on electrocardiogram Code(s): R94.31 - ABNORMAL ELECTROCARDIOGRAM [ECG] [EKG] (7) Syncope Code(s): R55 - SYNCOPE AND COLLAPSE Qualifiers: Syncope type: unspecified Qualified Code(s): R55 - Syncope and collapse (8) T wave inversion in EKG Code(s): R94.31 - ABNORMAL ELECTROCARDIOGRAM [ECG] [EKG] (9) Abrasion Code(s): T14.8 - OTHER INJURY OF UNSPECIFIED BODY REGION * DO NOT USE * (10) Multiple contusions Code(s): T14.8 - OTHER INJURY OF UNSPECIFIED BODY REGION * DO NOT USE * (11) Urinary retention Code(s): R33.9 - RETENTION OF URINE, UNSPECIFIED Assessment/Plan syncope htn bph abn ekg c duplex non obstructive echo r/o mi neuro eval
--- NOTE | 2018-07-13 12:54 | CONSULT ---
Consult - text type - Consultation Consultation Note: ENT consult 78 yo man with radiologic evidence of partial opacification of left middle ear and mastoid, seen on CT of the temporal bones. Admitted due to syncope, which was preceded by dizziness. Long hx of slight hearing loss attributed by him to aging. 2 year hx of vertiginous dizziness when walking at times, and generally slow ambulation. No new changes in his hearing. No vertigo when not walking. P/WDWN male sitting up in bed, in NAD Neck no masses or tenderness AD EAC normal, TM retracted/opaque EAC normal, angel middle ear effusion Nose normal OC/OP normal Imp: Radiologic otomastoiditis , of uncertain clinical significance. Most likely due to chronic serous otitis media. Recommend outpatient follow up for audiologic and possibly vestibular testing, and possible drainage of the left middle ear
[2018-07-13 13:34] VITALS: BMI 29.2
--- NOTE | 2018-07-13 13:40 | ECHO ---
Name: JAQUELINE BOWER Exam:Adult Echocardiogram Study Date: 07/13/2018 11:13 AM Age: 78 yrs Reason For Study: SYNCOPE Height: 65 in Weight: 165 lb BSA: 1.8 m2 MMode/2D Measurements & Calculations IVSd: 0.88 cm Ao root diam: 3.7 cm LVIDd: 4.9 cm LA dimension: 3.9 cm LVIDs: 3.3 cm LVPWd: 0.83 cm EDV(Teich): 113.2 ml LVOT diam: 2.2 cm ESV(Teich): 42.9 ml Doppler Measurements & Calculations MV E max ochoa: 40.5 cm/sec Ao V2 max: 115.1 cm/sec MV A max ochoa: 58.3 cm/sec Ao max P.3 mmHg MV E/A: 0.69 Ao V2 mean: 80.0 cm/sec MV dec time: 0.28 sec Ao mean P.8 mmHg Ao V2 VTI: 26.2 cm WALE(I,D): 2.2 cm2 AI P1/2t: 1026 msec WALE(V,D): 2.3 cm2 AI max ochoa: 163.6 cm/sec LV V1 max P.0 mmHg AI max P.8 mmHg LV V1 mean P.2 mmHg AI dec slope: 46.7 cm/sec2 LV V1 max: 71.0 cm/sec LV V1 mean: 52.6 cm/sec LV V1 VTI: 15.7 cm MR max ochoa: 296.7 cm/sec SV(LVOT): 58.6 ml MR max P.2 mmHg TR max ochoa: 205.3 cm/sec PI end-d ochoa: 110.8 cm/sec TR max P.9 mmHg Med Peak E' Ochoa: 5.2 cm/sec Med E/e': 7.8 Lat Peak E' Ochoa: 4.2 cm/sec Lat E/e': 9.7 Procedure A two-dimensional transthoracic echocardiogram with color flow and Doppler was performed. Left Ventricle The left ventricular size, thickness and function are normal. The left ventricular ejection fraction is normal. E/A reversal consistent with but not diagnostic of poor LV compliance. The left ventricular w all motion is normal. Right Ventricle The right ventricle is normal in size and function. Atria Normal left and right atrial size and function. Mitral Valve There is mild mitral annular calcification. There is no mitral valve stenosis. There is trace to mild mitral regurgitation. Tricuspid Valve There is mild tricuspid valve thickening. There is no tricuspid stenosis. There is moderate tricuspid regurgitation. Right ventricular systolic pressure is normal. Aortic Valve The aortic valve is normal in structure and function. No hemodynamically significant valvular aortic stenosis. Mild to moderate aortic regurgitation. Pulmonic Valve The pulmonic valve is not well visualized. There is no pulmonic valvular stenosis. Mild pulmonic valv ular regurgitation. Great Vessels The aortic root is normal size. Pericardium/Pleura Trivial pericardial effusion not hemodynamically significant. Interpretation Summary The left ventricular size, thickness and function are normal The left ventricular ejection fraction is normal. The left ventricular wall motion is normal. Mild to moderate aortic regurgitation. There is moderate tricuspid regurgitation. Right ventricular systolic pressure is normal. Mild pulmonic valvular regurgitation. E/A reversal consistent with but not diagnostic of poor LV compliance Trivial pericardial effusion not hemodynamically significant There is trace to mild mitral regurgitation. MD Jimmy Ruvalcaba 07/13/2018 01:39 PM
--- NOTE | 2018-07-13 14:45 | PN ---
Teaching Attending Note Name of Resident: Abraham Stringer ATTENDING PHYSICIAN STATEMENT I saw and evaluated the patient. I reviewed the resident's note and discussed the case with the resident. I agree with the resident's findings and plan as documented. SUBJECTIVE: Still complains of intermittent dizziness - ongoing for 3 years. No headache/visual disturbance, limb numbness/weakness. No fever/chills. OBJECTIVE: Afebrile, Hemodynamically Stable. Last Vital Signs Temp Pulse Resp BP Pulse Ox 97.8 F 68 18 143/86 98 07/13/18 13:19 07/13/18 13:19 07/13/18 13:19 07/13/18 13:07/13/18 13: HEENT - Atraumatic, Normocephalic. Heart - S1, S2, RRR Lungs - clear to auscultation Abdomen - soft, non-tender. Bowel Sounds normal. Extremities - no edema, no calf tenderness. Neuro - AAO x 3. Tone/Power normal all 4 extremities. Laboratory Results - last 24 hr 07/13/18 07/13/18 07/13/18 06:00 06:00 06:00 WBC 3.6 L RBC 3.86 L Hgb 12.8 Hct 36.9 MCV 95.5 MCH 33.2 MCHC 34.7 RDW 14.0 Plt Count 133 L MPV 8.0 Absolute Neuts (auto) 1.9 Neutrophils % 53.4 Lymphocytes % 32.8 D Monocytes % 10.0 Eosinophils % 2.8 D Basophils % 1.0 Nucleated RBC % 0 Sodium 141 Potassium 4.1 Chloride 111 H Carbon Dioxide 26 Anion Gap 4 L BUN 18 Creatinine 0.8 Est GFR (CKD-EPI)AfAm 99.17 Est GFR (CKD-EPI)NonAf 85.56 Random Glucose 87 Hemoglobin A1c % 5.4 Calcium 7.7 L Phosphorus 3.3 Total Bilirubin 0.4 AST 21 ALT 33 Alkaline Phosphatase 53 Creatine Kinase 65 Troponin I < 0.02 Total Protein 5.9 L Albumin 3.0 L Triglycerides 213 H Cholesterol 145 Total LDL Cholesterol 86 HDL Cholesterol 25 L TSH 4.58 H Free T4 1.02 Current Medications Generic Name Dose Route Start Last Admin Trade Name Freq PRN Reason Stop Dose Admin Acetaminophen 650 mg 07/12/18 17:13 Tylenol - PO Q6H PRN PAIN LEVEL 4 - 6 Aspirin 81 mg 07/13/18 10:00 07/13/18 09:03 Asa - PO 81 mg DAILY JENIFER Administration Docusate Sodium 100 mg 07/12/18 22:00 07/13/18 00:35 Colace - PO 100 mg HS JENIFER Administration Heparin Sodium (Porcine) 5,000 unit 07/12/18 22:00 07/13/18 06:35 Heparin - SQ 5,000 unit TID JENIFER Administration Senna 2 tab 07/12/18 22:00 07/13/18 00:35 Senna - PO 2 tab HS JENIFER Administration Home Medications Medication Instructions Recorded Metoprolol Tartrate 25 mg PO DAILY 02/25/16 Valsartan/Hydrochlorothiazide 1 each PO DAILY 02/25/16 [Valsartan-Hctz 80-12.5 mg Tab] ASSESSMENT AND PLAN: 78 year old male with history of HTN, BPH, 78 year old male with history of HTN and BPH, presented with fall secondary to dizziness. No clear history of loss of consciousness. No preceding chest pain/ palpitations. Patient reports head injury but unclear regarding loss of consciousness. CT Head 07/12/2018 - No CT evidence of acute intracranial pathology. There has been no definite interval change in comparison to a prior CT exam of 2014. Mild bilateral cerebellar atrophy. Note is again made of left otomastoiditis - ? persistent versus recurrent in nature. Correlate clinically. There is again visualization of several subcutaneous linear metallic densities along the parieto-occipital regions bilaterally - ? etiology. Reported By: Mehdi Sloan MD) CT facial 07/12/2018 - Evaluation of the left temporal bone demonstrates almost totally opacified left mastoid air cells and partial opacification of the left middle ear suspicious for mastoiditis and otitis media. Inner ear structures appear to be intact. No focal bone destruction or fracture is identified. Evaluation of the right temporal bone appears unremarkable. 1. Fall/Presyncope secondary to Dizziness, possibly secondary to Osteomastoiditis. CT Head and facial bones as above. ECG - SR, anterior T wave inversion, TropI neg x 2. No reported CP. Carotid Duplex - no hemodynamically significant narrowing. Echo - normal LV function, normal EF, mild MR, moderate AR/TR ENT, Cardiology, Neurology evaluations requested. ENT recommends out-patient follow up for audiologic/vestibular testing PT, with assessment for vestibular rehab. 2. HTN - resume Metorpolol, Valsartan. Will hold HCTZ for now. 3. BPH - does not appear to be on medications - for out-patient Urology follow up. DVT Px - Heparin SQ
[2018-07-13] MEDS: VALSARTAN 80 MG TABLET (UD) PO SCH (15:10)
--- NOTE | 2018-07-13 15:18 | PN ---
Progress Note, Physician History of Present Illness: 78 year old M with h/o HTN and BPH who presents today complaining of syncopal episode which occurred on July 08. Mr. Solano reports being seated and watching TV when he began to experience dizziness for several seconds followed by LOC. Pt fell forward and hit his face. As per pt his states he was unconscious for approximately 3mins. He endorses a similar episode in 2014 when he presented to [facility] for evaluation due to a fall which he now states was related to feeling dizzy while pushing his shopping cart. Pt reports he has been experiencing "dizzy spells" on an almost daily basis over the last but has not lost consciousness. He has never been evaluated by neurology or cardiology. Patient denies headaches/N/V/D/seizure activity or speech impairments. Pt denies loss of bowel or bladder function. He denies recent travel, recent illness or sick contacts. Denies CP,SOB, abdominal pain, urinary symptoms, fever or chills. Due to persistent dizziness and unsteady gait, he decided to present to his PCP for evaluation. After relating incident to primary care provider, pt was encouraged to seek medical attention in the ED. In ED: Vitals were HR 88bpm, T 97.2, BP 143/97, RR 18, O2 sat 95%. Head CT negative. Facial CT: no fracture Labs: unremarkable - Current Medication List Current Medications: Active Medications Acetaminophen (Tylenol -) 650 mg PO Q6H PRN PRN Reason: PAIN LEVEL 4 - 6 Aspirin (Asa -) 81 mg PO DAILY [facility] Last Admin: 07/13/18 09:03 Dose: 81 mg Docusate Sodium (Colace -) 100 mg PO [facility] Last Admin: 07/13/18 00:35 Dose: 100 mg Heparin Sodium (Porcine) (Heparin -) 5,000 unit SQ TID [facility] Last Admin: 07/13/18 15:10 Dose: 5,000 unit Metoprolol Tartrate (Lopressor -) 25 mg PO DAILY [facility] Last Admin: 07/13/18 15:10 Dose: 25 mg Senna (Senna -) 2 tab PO HS [facility] Last Admin: 07/13/18 00:35 Dose: 2 tab Valsartan (Diovan -) 80 mg PO DAILY [facility] Last Admin: 07/13/18 15:10 Dose: 80 mg - Objective Vital Signs: Vital Signs Temperature 98 F 07/13/18 14:49 Pulse Rate 61 07/13/18 14:49 Respiratory Rate 18 07/13/18 14:49 Blood Pressure 138/81 07/13/18 14:49 O2 Sat by Pulse Oximetry (%) 98 07/13/18 13:19 Eyes: Yes: WNL, Conjunctiva Clear, EOM Intact HENT: Yes: WNL, Atraumatic, Normocephalic Neck: Yes: WNL, Supple, Trachea Midline Cardiovascular: Yes: WNL, Regular Rate and Rhythm Respiratory: Yes: WNL, Regular, CTA Bilaterally Gastrointestinal: Yes: WNL, Normal Bowel Sounds Genitourinary: Yes: WNL Musculoskeletal: Yes: WNL Extremities: Yes: WNL Edema: No Integumentary: Yes: WNL Neurological: Yes: WNL, Alert, Oriented ...Motor Strength: WNL Psychiatric: Yes: WNL Labs: CBC, BMP 07/13/18 06:00 07/13/18 06:00 INR, PTT INR 0.91 (0.83-1.09) 07/12/18 12:21 Problem List - Problems (1) Dizziness Code(s): R42 - DIZZINESS AND GIDDINESS (2) Facial trauma Code(s): S09.93XA - UNSPECIFIED INJURY OF FACE, INITIAL ENCOUNTER Qualifiers: Encounter type: initial encounter Qualified Code(s): S09.93XA - Unspecified injury of face, initial encounter (3) HTN (hypertension) Code(s): I10 - ESSENTIAL (PRIMARY) HYPERTENSION (4) Need for assistance due to unsteady gait Code(s): R26.89 - OTHER ABNORMALITIES OF GAIT AND MOBILITY (5) Prophylactic measure Code(s): Z29.9 - ENCOUNTER FOR PROPHYLACTIC MEASURES, UNSPECIFIED (6) ST segment changes on electrocardiogram Code(s): R94.31 - ABNORMAL ELECTROCARDIOGRAM [ECG] [EKG] (7) Syncope Code(s): R55 - SYNCOPE AND COLLAPSE Qualifiers: Syncope type: unspecified Qualified Code(s): R55 - Syncope and collapse (8) T wave inversion in EKG Code(s): R94.31 - ABNORMAL ELECTROCARDIOGRAM [ECG] [EKG] (9) Abrasion Code(s): T14.8 - OTHER INJURY OF UNSPECIFIED BODY REGION * DO NOT USE * (10) Multiple contusions Code(s): T14.8 - OTHER INJURY OF UNSPECIFIED BODY REGION * DO NOT USE * (11) Urinary retention Code(s): R33.9 - RETENTION OF URINE, UNSPECIFIED Assessment/Plan syncope htn bph abn ekg c duplex non obstructive echo nkl ef r/o mi neg neuro eval Plan MIBI stress test for risk stratification
--- NOTE | 2018-07-13 15:50 | PN ---
Physical Exam: SUBJECTIVE: Patient seen and examined. Pt. states she is feeling ok right now. Pt. states he felt dizzy(he was spinning) before he fell. Pt. denies LOC. Pt. denies chest pain, nause, vomiting, nausea, vomiting, palpitations, blurry vision. OBJECTIVE: Vital Signs Period Temp Pulse Resp BP Sys/Goodson Pulse Ox Last 24 Hr 97.6 F-98.3 F 59-75 17-18 96-143/63-89 93-98 GENERAL: The patient is awake, alert, and fully oriented, in no acute distress. HEAD: Normal with no signs of trauma. EYES: Sclera anicteric, conjunctiva clear. ENT: Ears normal, nares patent, oropharynx clear without exudates, moist mucous membranes. NECK: Trachea midline, full range of motion, supple. LUNGS: Breath sounds equal, clear to auscultation bilaterally, no wheezes, no crackles, no accessory muscle use. HEART: Regular rate and rhythm, S1, S2 without murmur ABDOMEN: Soft, nontender, nondistended, normoactive bowel sounds EXTREMITIES: 2+ radial pulses, warm, well-perfused, no edema. NEUROLOGICAL: Normal speech, gait not observed. PSYCH: Normal mood, normal affect. SKIN: Warm, dry, normal turgor Laboratory Results - last 24 hr 07/13/18 07/13/18 07/13/18 06:00 06:00 06:00 WBC 3.6 L RBC 3.86 L Hgb 12.8 Hct 36.9 MCV 95.5 MCH 33.2 MCHC 34.7 RDW 14.0 Plt Count 133 L MPV 8.0 Absolute Neuts (auto) 1.9 Neutrophils % 53.4 Lymphocytes % 32.8 D Monocytes % 10.0 Eosinophils % 2.8 D Basophils % 1.0 Nucleated RBC % 0 Sodium 141 Potassium 4.1 Chloride 111 H Carbon Dioxide 26 Anion Gap 4 L BUN 18 Creatinine 0.8 Est GFR (CKD-EPI)AfAm 99.17 Est GFR (CKD-EPI)NonAf 85.56 Random Glucose 87 Hemoglobin A1c % 5.4 Calcium 7.7 L Phosphorus 3.3 Total Bilirubin 0.4 AST 21 ALT 33 Alkaline Phosphatase 53 Creatine Kinase 65 Troponin I < 0.02 Total Protein 5.9 L Albumin 3.0 L Triglycerides 213 H Cholesterol 145 Total LDL Cholesterol 86 HDL Cholesterol 25 L TSH 4.58 H Free T4 1.02 Active Medications Home Medications Medication Instructions Recorded Metoprolol Tartrate 25 mg PO DAILY 02/25/16 Valsartan/Hydrochlorothiazide 1 each PO DAILY 02/25/16 [Valsartan-Hctz 80-12.5 mg Tab] Current Medications Acetaminophen (Tylenol -) 650 mg PO Q6H PRN PRN Reason: PAIN LEVEL 4 - 6 Aspirin (Asa -) 81 mg PO DAILY [facility] Last Admin: 07/13/18 09:03 Dose: 81 mg Docusate Sodium (Colace -) 100 mg PO HS [facility] Last Admin: 07/13/18 00:35 Dose: 100 mg Heparin Sodium (Porcine) (Heparin -) 5,000 unit SQ TID [facility] Last Admin: 07/13/18 15:10 Dose: 5,000 unit Metoprolol Tartrate (Lopressor -) 25 mg PO DAILY [facility] Last Admin: 07/13/18 15:10 Dose: 25 mg Senna (Senna -) 2 tab PO [facility] Last Admin: 07/13/18 00:35 Dose: 2 tab Valsartan (Diovan -) 80 mg PO DAILY [facility] Last Admin: 07/13/18 15:10 Dose: 80 mg ASSESSMENT/PLAN: A 78 y.o. M w/ PMHx. of HTN and BPH, presented with fall secondary to dizziness , without chest pain, shortness of breath or loss of consciousness. #Fall/Presyncope Likely 2/2 to Dizziness,Hx. of chronic vs. recurring Osteomastoiditis. Head CT showed no evidence of acute intracranial pathology. left otomastoiditis persistent versus recurrent in nature, several subcutaneous linear metallic densities along the parieto-occipital regions bilaterally Facial CT showed totally opacified left mastoid air cells and partial opacification of the left middle ear suspicious for mastoiditis and otitis media ECG - SR, anterior T wave inversion, TropI neg x 2. No reported CP. Carotid Duplex - no hemodynamically significant narrowing. Echo - normal LV function, normal EF, mild MR, moderate AR/TR For Stress test in AM ENT consult (Dr. Hansen) appreciated recommends out-patient follow up for audiologic/vestibular testing f/u Physical Therapy #HTN c/w Metorpolol, Valsartan hold HCTZ #BPH not on any medications #DVT Ppx. Heparin SQ
[2018-07-14] MEDS: HEPARIN NA (PORCINE) 5,000 UNITS/ML 1ML VIAL SQ SCH ×2 (05:15→13:36)
[2018-07-14 06:13] LABS: BASO % 1.2 % (0-2.0); EOS % 3.1 % (0-4.5); HEMOGLOBIN 13.4 GM/dL (11.7-16.9); LYMPH % 34.4 % (8-40); MCH 32.9 pg (25.7-33.7); MCHC 34.5 g/dl (32.0-35.9); MEAN CELL VOLUME 95.5 fl (80-96); MEAN PLT VOLUME 8.4 fl (7.5-11.1); MONO % 9.6 % (3.8-10.2); NEUT % 51.7 % (42.8-82.8); PLATELET COUNT 133 K/MM3 (134-434); RBC 4.09 M/mm3 (4.00-5.60); RDW 14.1 % (11.9-15.9); WHITE BLOOD COUNT 4.7 K/mm3 (4.0-10.0)
[2018-07-14 06:31] LABS: CALCIUM 8.3 mg/dL (8.5-10.1); MAGNESIUM 1.9 mg/dL (1.8-2.4); POTASSIUM 3.8 mmol/L (3.5-5.1)
[2018-07-14] MEDS: VALSARTAN 80 MG TABLET (UD) PO SCH ×2 (08:01→10:11)
[2018-07-14] MEDS: ASPIRIN 81 MG CHEWABLE TABLETS PO SCH ×2 (08:02→10:11)
--- NOTE | 2018-07-14 09:12 | PN ---
Progress Note (short form) - Note Progress Note: Neurology - Admission Chief Complaint: dizziness, syncopal episode History of Present Illness: 78 year old M with h/o HTN and BPH who presented on day of admission, complaining of syncopal episode which occurred on July 08. Mr. Solano reports being seated and watching TV when he began to experience dizziness for several seconds followed by LOC. Pt fell forward and hit his face. As per pt's , stated he was unconscious for approximately 3mins. He endorsed a similar episode in 2014 when he presented to [facility] for evaluation due to a fall which he now states was related to feeling dizzy while pushing his shopping cart. Pt reported he has been experiencing "dizzy spells" on an almost daily basis but has not lost consciousness. He has never been evaluated by neurology or cardiology. Patient denied headaches/N/V/D/seizure activity or speech impairments. Pt denied loss of bowel or bladder function. He denied recent travel, recent illness or sick contacts. Denied CP,SOB, abdominal pain, urinary symptoms, fever or chills. Due to persistent dizziness and unsteady gait, he decided to present to his PCP for evaluation. After relating incident to primary care provider, pt was encouraged to seek medical attention in the ED. Head CT completed with mild bilateral cerebellar atrophy. CT of the facial and temporal bone completed, with opacified left mastoid air cells and partial opacification of the left middle ear - suspicious for mastoiditis and otitis media. Cervical Spine CT completed with multilevel degenerative disc and facet joint changes. Carotid doppler without significant hemodynamic stenosis. Do not feel he requires an MRI at this pointbased on lack of deficits on exam and clinically been stable. Discussed with nurse this a.m. and remains neurologically stable at this time Active Medications Acetaminophen (Tylenol -) 650 mg PO Q6H PRN PRN Reason: PAIN LEVEL 4 - 6 Aspirin (Asa -) 81 mg PO DAILY [facility] Last Admin: 07/14/18 08:02 Dose: 81 mg Docusate Sodium (Colace -) 100 mg PO HS [facility] Last Admin: 07/13/18 21:24 Dose: 100 mg Heparin Sodium (Porcine) (Heparin -) 5,000 unit SQ TID [facility] Last Admin: 07/14/18 05:15 Dose: 5,000 unit Metoprolol Tartrate (Lopressor -) 25 mg PO DAILY [facility] Last Admin: 07/13/18 15:10 Dose: 25 mg Senna (Senna -) 2 tab PO HS [facility] Last Admin: 07/13/18 21:24 Dose: 2 tab Valsartan (Diovan -) 80 mg PO DAILY [facility] Last Admin: 07/14/18 08:01 Dose: 80 mg Physical Examination Vital Signs Period Temp Pulse Resp BP Sys/Goodson Pulse Ox Last 24 Hr 97.4 F-98 F 55-86 18-18 100-143/68-86 95-98 Constitutional: Yes: Well Nourished, No Distress, Calm Eyes: Yes: Conjunctiva Clear, EOM Intact, PERRL HENT: Yes: Normocephalic, Other (poor dentition, periorbital ecchymosis) Cardiovascular: Yes: Bradycardia, S1, S2 Respiratory: Yes: Regular, CTA Bilaterally Gastrointestinal: Yes: Normal Bowel Sounds, Soft ...Rectal Exam: Yes: Deferred Musculoskeletal: Yes: Muscle Weakness (poor tone and strength b/l LEs) Extremities: Yes: WNL Edema: No Peripheral Pulses WNL: Yes Peripheral Pulses: Left Radial: 2+, Right Radial: 2+, Left Doralis Pedis: 2+, Right Dorsalis Pedis: 2+ Integumentary: Yes: WNL Neurological: cranial nerves intact, no facial droop, no slurred speech, strength intact bilaterally in upper and lower extremities, sensory intact, [id number] normal CBCD WBC 4.7 K/mm3 (4.0-10.0) 07/14/18 05:30 RBC 4.09 M/mm3 (4.00-5.60) 07/14/18 05:30 Hgb 13.4 GM/dL (11.7-16.9) 07/14/18 05:30 Hct 39.0 % (35.4-49) 07/14/18 05:30 MCV 95.5 fl (80-96) 07/14/18 05:30 MCHC 34.5 g/dl (32.0-35.9) 07/14/18 05:30 RDW 14.1 % (11.9-15.9) 07/14/18 05:30 Plt Count 133 K/MM3 (134-434) L 07/14/18 05:30 MPV 8.4 fl (7.5-11.1) 07/14/18 05:30 CMP Sodium 139 mmol/L (136-145) 07/14/18 05:30 Potassium 3.8 mmol/L (3.5-5.1) 07/14/18 05:30 Chloride 107 mmol/L (98-107) 07/14/18 05:30 Carbon Dioxide 27 mmol/L (21-32) 07/14/18 05:30 Anion Gap 5 MMOL/L (8-16) L 07/14/18 05:30 BUN 20 mg/dL (7-18) H 07/14/18 05:30 Creatinine 1.0 mg/dL (0.55-1.3) 07/14/18 05:30 Random Glucose 92 mg/dL (74-106) 07/14/18 05:30 Calcium 8.3 mg/dL (8.5-10.1) L 07/14/18 05:30 Total Bilirubin 0.4 mg/dL (0.2-1) 07/13/18 06:00 AST 21 U/L (15-37) 07/13/18 06:00 ALT 33 U/L (13-61) 07/13/18 06:00 Alkaline Phosphatase 53 U/L (45-117) 07/13/18 06:00 Total Protein 5.9 g/dl (6.4-8.2) L 07/13/18 06:00 Albumin 3.0 g/dl (3.4-5.0) L 07/13/18 06:00 CARDIAC ENZYMES Creatine Kinase 65 U/L (26-308) 07/13/18 06:00 Troponin I < 0.02 ng/ml (0.00-0.05) 07/13/18 06:[address] - completed, bilateral cerebellar atrophy Cervical Spine CT - completed, opacified left mastoid air cells and partial opacification of the left middle ear - suspicious for mastoiditis and otitis media Facial and Temporal CT - completed, multilevel degenerative disc and facet joint changes ASSESSMENT/PLAN 78 year old M with h/o HTN and BPH who presented on day of admission, complaining of syncopal episode which occurred on July 08. Mr. Solano reports being seated and watching TV when he began to experience dizziness for several seconds followed by LOC. Pt fell forward and hit his face. As per pt's , stated he was unconscious for approximately 3mins. He endorsed a similar episode in 2014 when he presented to [facility] for evaluation due to a fall which he now states was related to feeling dizzy while pushing his shopping cart. Pt reported he has been experiencing "dizzy spells" on an almost daily basis but has not lost consciousness. He has never been evaluated by neurology or cardiology. Patient denied headaches/N/V/D/seizure activity or speech impairments. Pt denied loss of bowel or bladder function. He denied recent travel, recent illness or sick contacts. Denied CP,SOB, abdominal pain, urinary symptoms, fever or chills. Due to persistent dizziness and unsteady gait, he decided to present to his PCP for evaluation. After relating incident to primary care provider, pt was encouraged to seek medical attention in the ED. Head CT completed with mild bilateral cerebellar atrophy. CT of the facial and temporal bone completed, with opacified left mastoid air cells and partial opacification of the left middle ear - suspicious for mastoiditis and otitis media. Cervical Spine CT completed with multilevel degenerative disc and facet joint changes. Carotd doppler reviewed and without hemodynamically significant stenosis. Do not feel he requires an MRI at this point, based on lack of deficits on exam and clinically been stable. Follow-up cardiology workup, hydration recommended, monitor blood pressure and maintain normotensive range. Neurologically stable at this time.
[2018-07-14] MEDS ORDERED: REGADENOSON 0.4 MG/5 ML PRE-FILLED SYRINGE IVPUSH ONE (10:00)
--- NOTE | 2018-07-14 11:31 | PN ---
Teaching Attending Note Name of Resident: Abraham Stringer ATTENDING PHYSICIAN STATEMENT I saw and evaluated the patient. I reviewed the resident's note and discussed the case with the resident. I agree with the resident's findings and plan as documented. SUBJECTIVE: Still complains of intermittent dizziness - ongoing for 3 years. No headache/visual disturbance, limb numbness/weakness. No fever/chills. OBJECTIVE: Afebrile, Hemodynamically Stable. Last Vital Signs Temp Pulse Resp BP Pulse Ox 97.8 F 86 18 138/84 96 07/14/18 08:11 07/14/18 08:11 07/14/18 08:11 07/14/18 08:11 07/14/18 06:00 Heart - S1, S2, RRR Lungs - clear to auscultation Abdomen - soft, non-tender. Bowel Sounds normal. Extremities - no edema, no calf tenderness. Neuro - AAO x 3. Tone/Power normal all 4 extremities. Laboratory Results - last 24 hr 07/14/18 07/14/18 05:30 05:30 WBC 4.7 RBC 4.09 Hgb 13.4 Hct 39.0 MCV 95.5 MCH 32.9 MCHC 34.5 RDW 14.1 Plt Count 133 L MPV 8.4 Absolute Neuts (auto) 2.4 Neutrophils % 51.7 Lymphocytes % 34.4 Monocytes % 9.6 Eosinophils % 3.1 Basophils % 1.2 Nucleated RBC % 0 Sodium 139 Potassium 3.8 Chloride 107 Carbon Dioxide 27 Anion Gap 5 L BUN 20 H Creatinine 1.0 Est GFR (CKD-EPI)AfAm 83.18 Est GFR (CKD-EPI)NonAf 71.77 Random Glucose 92 Calcium 8.3 L Magnesium 1.9 Current Medications Generic Name Dose Route Start Last Admin Trade Name Freq PRN Reason Stop Dose Admin Acetaminophen 650 mg 07/12/18 17:13 Tylenol - PO Q6H PRN PAIN LEVEL 4 - 6 Aspirin 81 mg 07/13/18 10:00 07/14/18 10:11 Asa - PO Not Given DAILY [facility] Docusate Sodium 100 mg 07/12/18 22:00 07/13/18 21:24 Colace - PO 100 mg HS [facility] Administration Heparin Sodium (Porcine) 5,000 unit 07/12/18 22:00 07/14/18 05:15 Heparin - SQ 5,000 unit TID [facility] Administration Metoprolol Tartrate 25 mg 07/13/18 15:00 07/13/18 15:10 Lopressor - PO 25 mg DAILY [facility] Administration Senna 2 tab 07/12/18 22:00 07/13/18 21:24 Senna - PO 2 tab HS [facility] Administration Valsartan 80 mg 07/13/18 15:00 07/14/18 10:11 Diovan - PO Not Given DAILY [facility] ASSESSMENT AND PLAN: 78 year old male with history of HTN and BPH, presented with fall secondary to dizziness. No clear history of loss of consciousness. No preceding chest pain/ palpitations. Patient reports head injury but unclear regarding loss of consciousness. CT Head 07/12/2018 - No CT evidence of acute intracranial pathology. There has been no definite interval change in comparison to a prior CT exam of 2014. Mild bilateral cerebellar atrophy. Note is again made of left otomastoiditis - ? persistent versus recurrent in nature. Correlate clinically. There is again visualization of several subcutaneous linear metallic densities along the parieto-occipital regions bilaterally - ? etiology. Reported By: Mehdi Sloan MD) CT facial 07/12/2018 - Evaluation of the left temporal bone demonstrates almost totally opacified left mastoid air cells and partial opacification of the left middle ear suspicious for mastoiditis and otitis media. Inner ear structures appear to be intact. No focal bone destruction or fracture is identified. Evaluation of the right temporal bone appears unremarkable. 1. Fall/Presyncope secondary to Dizziness, possibly secondary to Osteomastoiditis. CT Head and facial bones as above. ECG - SR, anterior T wave inversion, TropI neg x 2. No reported CP. Carotid Duplex - no hemodynamically significant narrowing. Echo - normal LV function, normal EF, mild MR, moderate AR/TR ENT, Cardiology, Neurology evaluations requested. Given no focal neuro deficits, no further work-up recommended by Neuro Cardiology recommends NM Stress - if negative, can be discharged. ENT recommends out-patient follow up for audiologic/vestibular testing PT, with assessment for vestibular rehab. 2. HTN - resume Metorpolol, Valsartan. Will hold HCTZ on discharge. 3. BPH - does not appear to be on medications - for out-patient Urology follow up. DVT Px - Heparin SQ
--- NOTE | 2018-07-14 14:03 | DS ---
Physical Exam: SUBJECTIVE: Patient seen and examined OBJECTIVE: Vital Signs Period Temp Pulse Resp BP Sys/Goodson Pulse Ox Last 24 Hr 97.4 F-98 F 55-86 18-18 100-139/68-84 95-98 PHYSICAL EXAM GENERAL: The patient is awake, alert, and fully oriented, in no acute distress. HEAD: Normal with no signs of trauma. EYES: PERRL, extraocular movements intact, sclera anicteric, conjunctiva clear. ENT: Ears normal, nares patent, oropharynx clear without exudates, moist mucous membranes. NECK: Trachea midline, full range of motion, supple. LUNGS: Breath sounds equal, clear to auscultation bilaterally, no wheezes, no crackles, no accessory muscle use. HEART: Regular rate and rhythm, S1, S2 without murmur, rub or gallop. ABDOMEN: Soft, nontender, nondistended, normoactive bowel sounds, no guarding, no rebound, no hepatosplenomegaly, no masses. EXTREMITIES: 2+ pulses, warm, well-perfused, no edema. NEUROLOGICAL: Cranial nerves II through XII grossly intact. Normal speech, gait not observed. PSYCH: Normal mood, normal affect. SKIN: Warm, dry, normal turgor, no rashes or lesions noted. LABS Laboratory Results - last 24 hr 07/14/18 07/14/18 05:30 05:30 WBC 4.7 RBC 4.09 Hgb 13.4 Hct 39.0 MCV 95.5 MCH 32.9 MCHC 34.5 RDW 14.1 Plt Count 133 L MPV 8.4 Absolute Neuts (auto) 2.4 Neutrophils % 51.7 Lymphocytes % 34.4 Monocytes % 9.6 Eosinophils % 3.1 Basophils % 1.2 Nucleated RBC % 0 Sodium 139 Potassium 3.8 Chloride 107 Carbon Dioxide 27 Anion Gap 5 L BUN 20 H Creatinine 1.0 Est GFR (CKD-EPI)AfAm 83.18 Est GFR (CKD-EPI)NonAf 71.77 Random Glucose 92 Calcium 8.3 L Magnesium 1.9 HOSPITAL COURSE: Date of Admission:07/12/18 Date of Discharge: 07/14/18 Discharge Summary Reason For Visit: SYNCOPE Current Active Problems Dizziness (Acute) Facial trauma (Acute) HTN (hypertension) (Acute) Need for assistance due to unsteady gait (Acute) Prophylactic measure (Acute) ST segment changes on electrocardiogram (Acute) Syncope (Acute) T wave inversion in EKG (Acute) Condition: Stable - Instructions Diet, Activity, Other Instructions: stress test result Please follow up with ENT, Dr. Grove within 1 week for audiologic/vestibular testing and assessment for vestibular rehab. Please continue with Physical Therapy. Resume Metorpolol, Valsartan. Will hold HCTZ on discharge. BPH - does not appear to be on medications - for out-patient Urology follow up Disposition: HOME - Home Medications Comprehensive Discharge Medication List: Ambulatory Orders Metoprolol Tartrate 25 mg PO DAILY 02/25/16 Valsartan/Hydrochlorothiazide [Valsartan-Hctz 80-12.5 mg Tab] 1 each PO DAILY Tamsulosin HCl [Flomax] 0.4 mg PO DAILY 07/14/18
[2018-07-14 14:15] VITALS: BP 113/76; PULSE 106; TEMP 98.2
--- NOTE | 2018-07-14 17:40 | PN ---
Progress Note, Physician History of Present Illness: 07/12/18 12:50 78yo M hx HTN, COPD, and BPH sent in by PCP for evaluation s/p witnessed (by ) syncopal episode on Wednesday07/08/18. Patient states he was reading a book when he had a coughing spell and subsequently passed out falling out of his chair on Wednesday. states pt had LOC for 3 minutes without convulsions or incontinence. Pt endorses a 3 day hx of lightheadedness and unsteady gait. Pt visited PCP this morning who prompted him to visit ED for further evaluation. Denies any recent surgeries. Denies CP, SOB, headache, focal weakness/numbness, abd pain, N/V/D, LE edema. PCP: Dr. Naranjo - Objective Vital Signs: Vital Signs Temperature 98.2 F 07/14/18 14:00 Pulse Rate 106 H 07/14/18 14:00 Respiratory Rate 18 07/14/18 14:00 Blood Pressure 113/76 07/14/18 14:00 O2 Sat by Pulse Oximetry (%) 96 07/14/18 14:00 Labs: CBC, BMP 07/14/18 05:30 07/14/18 05:30 INR, PTT INR 0.91 (0.83-1.09) 07/12/18 12:21
== END 2018-07-14 17:32 | disposition home or self-care (01) ==
LOC: JER 09:52 → JERBED 13:00 → J4S 07-13 13:15
PROC: 3E033GC Introduction of Other Therapeutic Substance into Peripheral Vein, Percutaneous Approach (ICD-10-PCS; principal; 2018-07-12)
PROC: 3E013GC Introduction of Other Therapeutic Substance into Subcutaneous Tissue, Percutaneous Approach (ICD-10-PCS; 2018-07-12)
DX: R55 Syncope and collapse (principal); R94.31 Abnormal electrocardiogram [ECG] [EKG]; S09.93XA Unspecified injury of face, initial encounter; R42 Dizziness and giddiness; R26.89 Other abnormalities of gait and mobility; H75.02 Mastoiditis in infectious and parasitic diseases classified elsewhere, left ear; I10 Essential (primary) hypertension; N40.0 Benign prostatic hyperplasia without lower urinary tract symptoms; J44.9 Chronic obstructive pulmonary disease, unspecified; R00.1 Bradycardia, unspecified; Z29.9 Encounter for prophylactic measures, unspecified; Z79.02 Long term (current) use of antithrombotics/antiplatelets; W18.39XA Other fall on same level, initial encounter; Y93.89 Activity, other specified; Y92.008 Other place in unspecified non-institutional (private) residence as the place of occurrence of the external cause
CPT/HCPCS: 36415; 70450-TC; 70480-TC; 70486-TC; 71045-TC-FY; 72125-TC; 78452-TC; 80048; 80053; 80061; 82550; 83036; 83721; 83735; 84100; 84439; 84443; 84484; 85025; 85610; 85730; 93005; 93010; 93017; 93306-TC; 93880-TC; 96372; 96374; 97116-GP; 97161-GP; 99285-25; A9502; G0378; J1644; J2785

== ENCOUNTER 2023-02-19 12:04 | Inpatient (IN) | payer OTHER ==
[2023-02-19] MEDS ORDERED: SODIUM CHLORIDE 0.9% 500 ML INFUS.BAG IV ONE (12:42)
[2023-02-19] MEDS ORDERED: ACETAMINOPHEN 1000 MG/100 ML BAG IVPB ONE (12:42)
[2023-02-19] MEDS ORDERED: FAMOTIDINE 20 MG/50 ML IVPB 20 MG/50 ML MG IVPB ONE ×2 (12:42→12:48)
[2023-02-19] MEDS ORDERED: ACETAMINOPHEN INJECTION 100 ML IVPB ONE (12:47)
[2023-02-19 13:19] LABS: BASO % 0.4 % (0-2.0); EOS % 0.1 % (0-4.5); HEMATOCRIT 39.6 % (35.4-49); HEMOGLOBIN 13.6 GM/dL (11.7-16.9); MCH 32.8 pg (25.7-33.7); MCHC 34.3 g/dl (32.0-35.9); MEAN CELL VOLUME 95.8 fl (80-96); MEAN PLT VOLUME 7.7 fl (7.5-11.1); MONO % 5.7 % (3.8-10.2); NEUT % 87.8 % (42.8-82.8); PLATELET COUNT 107 10^3/uL (134-434); RBC 4.14 M/mm3 (4.00-5.60); RDW 13.9 % (11.9-15.9); WHITE BLOOD COUNT 3.8 K/mm3 (4.0-10.0)
[2023-02-19 14:02] LABS: POTASSIUM 4.1 mmol/L (3.5-5.1)
[2023-02-19 14:05] LABS: CALCIUM 8.5 mg/dL (8.5-10.1)
[2023-02-19 14:07] LABS: ALBUMIN 3.3 g/dl (3.4-5.0); BLOOD UREA NITROGEN 20.7 mg/dL (7-18)
[2023-02-19 14:10] LABS: LACTIC ACID 2.2 mmol/L (0.4-2.0)
[2023-02-19 14:12] LABS: BILIRUBIN,TOTAL 1.2 mg/dL (0.2-1); TOT PROT 6.7 g/dl (6.4-8.2)
[2023-02-19] MEDS ORDERED: PIPERACILLIN/TAZOB 4.5 GM 4.5 GM in DEXTROSE 5%-WATER 100 ML IVPB ONE (16:59)
[2023-02-19] MEDS ORDERED: morphine CARPU-JECT 2 MG/1 ML DISP.SYRIN IVPUSH ONE (17:23)
[2023-02-19] MEDS ORDERED: PIPERACILLIN/TAZOB 4.5 GM 4.5 GM/100 ML BAG IVPB ONE (18:20)
[2023-02-19] MEDS ORDERED: ACETAMINOPHEN 1000 MG/100 ML BAG IVPB PRN (18:23)
[2023-02-19] MEDS ORDERED: ALBUTEROL SO4 HFA INHALER IH PRN (18:25)
[2023-02-19] MEDS ORDERED: LACTATED RINGERS SOLUTION 1,000 ML IV SCH ×2 (18:30)
[2023-02-19 20:43] LABS: BILIRUBIN,DIRECT 0.3 mg/dL (0.0-0.2)
[2023-02-19] MEDS ORDERED: LACTATED RINGERS SOLUTION 1,000 ML/1,000 ML INFUS.BAG IV STA (23:05)
[2023-02-19 23:40] LABS: EPI CELLS 13 /uL (0-25.1); HYALINE CASTS 0 /uL (0-3.1); PH,URINE 5.5 (5.0-8.0); URINE APPEARANCE CLEAR; URINE BACTERIA 3 /uL (0-1359); URINE BILIRUBIN NEGATIVE (NEGATIVE); URINE COLOR YELLOW; URINE GLUCOSE (UA) NEGATIVE (NEGATIVE); URINE KETONE TRACE (NEGATIVE); URINE LEUK ESTERASE NEGATIVE (NEGATIVE); URINE NITRITE NEGATIVE (NEGATIVE); URINE PROTEIN 1+ (NEGATIVE); URINE RBC 52 /uL (0-23.9); URINE UROBILINOGEN 0.2 mg/dL (0.2-1.0); URINE WBC 14 /uL (0-25.8)
[2023-02-20] MEDS: PIPERACILLIN/TAZOB 3.375 GM 3.375 GM in DEXTROSE 5%-WATER - 50 ML IVPB SCH ×2 (01:20→09:56)
[2023-02-20] MEDS ORDERED: PIPERACILLIN/TAZOB 3.375 GM 3.375 GM in DEXTROSE 5%-WATER - 50 ML IVPB SCH (02:00)
[2023-02-20 02:26] LABS: LACTIC ACID 2.1 mmol/L (0.4-2.0)
[2023-02-20 09:27] LABS: BASO % 0.1 % (0-2.0); EOS % 0.1 % (0-4.5); HEMATOCRIT 36.6 % (35.4-49); HEMOGLOBIN 12.8 GM/dL (11.7-16.9); LYMPH % 7.5 % (8-40); MCH 33.2 pg (25.7-33.7); MCHC 34.8 g/dl (32.0-35.9); MEAN CELL VOLUME 95.4 fl (80-96); MEAN PLT VOLUME 8.3 fl (7.5-11.1); MONO % 6.1 % (3.8-10.2); NEUT % 86.2 % (42.8-82.8); PLATELET COUNT 83 10^3/uL (134-434); RBC 3.84 M/mm3 (4.00-5.60); RDW 13.7 % (11.9-15.9); WHITE BLOOD COUNT 6.8 K/mm3 (4.0-10.0)
[2023-02-20] MEDS ORDERED: PROPOFOL 20 ML ONE (09:35)
[2023-02-20] MEDS ORDERED: SUCCINYLCHOLINE CHLORIDE 200 MG/10 ML SYRINGE ONE (09:36)
[2023-02-20] MEDS ORDERED: ROCURONIUM BROMIDE 50 MG/5 ML SYRINGE ONE (09:36)
[2023-02-20] MEDS ORDERED: BUPIVACAINE HCL/PF 0.25% (2.5MG/ML) 10 ML VIAL ONE (09:39)
[2023-02-20 09:40] LABS: POTASSIUM 3.7 mmol/L (3.5-5.1)
[2023-02-20 09:56] LABS: CALCIUM 7.8 mg/dL (8.5-10.1)
[2023-02-20 09:57] LABS: BLOOD UREA NITROGEN 21.2 mg/dL (7-18); MAGNESIUM 1.8 mg/dL (1.8-2.4)
[2023-02-20 10:00] LABS: BILIRUBIN,TOTAL 1.2 mg/dL (0.2-1)
[2023-02-20 10:01] LABS: TOT PROT 5.6 g/dl (6.4-8.2)
[2023-02-20 10:03] LABS: ALBUMIN 2.6 g/dl (3.4-5.0)
[2023-02-20] MEDS ORDERED: PIPERACILLIN/TAZOBACTAM 3.375 GM VIAL IVPB ONE (10:57)
[2023-02-20] MEDS ORDERED: BUPIVACAINE HCL/PF 0.25% (2.5MG/ML) 10 ML VIAL IJ ONE (11:18)
[2023-02-20] MEDS ORDERED: GLYCOPYRROLATE 0.2 MG/1 ML VIAL ONE (11:53)
[2023-02-20] MEDS ORDERED: NEOSTIGMINE METHYLSULFATE 0.5 MG/1 ML - 10 ML MDV ONE (11:53)
[2023-02-20] MEDS ORDERED: KETOROLAC TROMETHAMINE 30 MG/1 ML VIAL ONE (11:53)
[2023-02-20] MEDS ORDERED: MECLIZINE HCL 12.5 MG TABLET PO PRN (11:54)
[2023-02-20] MEDS ORDERED: oxyCODONE HCL 5 MG TABLET PO PRN (11:56)
[2023-02-20] MEDS ORDERED: ONDANSETRON 4 MG/2 ML VIAL IVPUSH PRN (12:01)
[2023-02-20] MEDS ORDERED: LACTATED RINGERS SOLUTION 1,000 ML IV SCH (12:15)
[2023-02-20] MEDS ORDERED: METOPROLOL TARTRATE 5 MG/5 ML VIAL ONE (12:27)
[2023-02-20] MEDS ORDERED: ALBUTEROL SO4 HFA INHALER IH PRN (12:41)
[2023-02-20] MEDS ORDERED: ACETAMINOPHEN 1000 MG/100 ML BAG IVPB ONE (13:15)
[2023-02-20] MEDS ORDERED: ACETAMINOPHEN INJECTION 100 ML IVPB ONE (13:17)
[2023-02-20] MEDS ORDERED: METOPROLOL TARTRATE 5 MG/5 ML VIAL IVPUSH ONE (13:30)
[2023-02-20] MEDS: LACTATED RINGERS SOLUTION 1,000 ML/1,000 ML INFUS.BAG IV SCH (14:12)
[2023-02-20] MEDS: ARTIFICIAL TEARS OPHTHALMIC DROPS OU SCH ×3 (14:12→21:59)
[2023-02-20 15:53] LABS: INR 1.38 (0.83-1.09); PROTHROMBIN TIME (PATIENT) 15.9 SEC (9.7-13.0)
[2023-02-20 15:54] LABS: ACTIVATED PTT 31.3 SECONDS (25.2-36.5)
[2023-02-20] MEDS: ACETAMINOPHEN 1000 MG/100 ML BAG IVPB SCH (21:58)
[2023-02-20] MEDS: MONTELUKAST NA 10 MG TABLET PO SCH (22:00)
[2023-02-21] MEDS: PIPERACILLIN/TAZOB 3.375 GM 3.375 GM in DEXTROSE 5%-WATER - 50 ML IVPB SCH ×3 (02:16→17:19)
[2023-02-21] MEDS: ACETAMINOPHEN 1000 MG/100 ML BAG IVPB SCH ×2 (06:31→13:49)
[2023-02-21] MEDS ORDERED: PIPERACILLIN/TAZOBACTAM 3.375 GM VIAL IVPB ONE (09:06)
[2023-02-21 09:16] LABS: BASO % 0.2 % (0-2.0); EOS % 1.3 % (0-4.5); HEMATOCRIT 35.6 % (35.4-49); HEMOGLOBIN 12.6 GM/dL (11.7-16.9); LYMPH % 5.8 % (8-40); MCH 33.7 pg (25.7-33.7); MCHC 35.3 g/dl (32.0-35.9); MEAN CELL VOLUME 95.4 fl (80-96); MEAN PLT VOLUME 8.6 fl (7.5-11.1); MONO % 3.6 % (3.8-10.2); NEUT % 89.1 % (42.8-82.8); PLATELET COUNT 84 10^3/uL (134-434); RBC 3.73 M/mm3 (4.00-5.60); WHITE BLOOD COUNT 5.9 K/mm3 (4.0-10.0)
[2023-02-21] MEDS: TAMSULOSIN HCL 0.4 MG CAP PO SCH (09:39)
[2023-02-21] MEDS: MAGNESIUM OXIDE 400 MG TABLET (FP) PO SCH (09:40)
[2023-02-21] MEDS: metoPROLOL SUCCINATE 25 MG TAB.SR.24H (FP) PO SCH (09:40)
[2023-02-21] MEDS: ARTIFICIAL TEARS OPHTHALMIC DROPS OU SCH ×4 (09:41→23:53)
[2023-02-21 09:42] LABS: POTASSIUM 3.4 mmol/L (3.5-5.1)
[2023-02-21 09:55] LABS: CALCIUM 8.2 mg/dL (8.5-10.1)
[2023-02-21 09:56] LABS: BLOOD UREA NITROGEN 27.4 mg/dL (7-18)
[2023-02-21] MEDS ORDERED: metoPROLOL SUCCINATE 25 MG TAB.SR.24H (FP) PO SCH (10:00)
[2023-02-21] MEDS: ENOXAPARIN NA (PORCINE) 40 MG/0.4 ML DISP.SYRIN SQ SCH (10:37)
[2023-02-21] MEDS: KCL 10 MEQ IVPB 10 MEQ/100 ML INFUS.BAG IVPB SCH ×2 (10:38→12:06)
[2023-02-21 11:51] LABS: MAGNESIUM 1.8 mg/dL (1.8-2.4)
[2023-02-21 11:54] LABS: PHOSPHOROUS 2.2 mg/dL (2.5-4.9)
[2023-02-21] MEDS ORDERED: POTASSIUM PHOSPHATE 15 MM in DEXTROSE 5%-WATER - 250 ML IVPB ONE (14:00)
[2023-02-21] MEDS: LACTATED RINGERS SOLUTION 1,000 ML/1,000 ML INFUS.BAG IV SCH (15:27)
[2023-02-21] MEDS: MONTELUKAST NA 10 MG TABLET PO SCH (23:52)
[2023-02-22] MEDS ORDERED: ONDANSETRON 4 MG TABLET PO PRN (01:12)
[2023-02-22] MEDS ORDERED: PIPERACILLIN/TAZOBACTAM 3.375 GM VIAL IVPB ONE (01:12)
[2023-02-22] MEDS ORDERED: ONDANSETRON 4 MG/2 ML VIAL IVPUSH PRN (01:21)
[2023-02-22] MEDS: PIPERACILLIN/TAZOB 3.375 GM 3.375 GM in DEXTROSE 5%-WATER - 50 ML IVPB SCH ×3 (01:23→17:16)
[2023-02-22] MEDS ORDERED: ALBUTEROL SO4 2.5/IPRATROPIUM 0.5 INH SOL 3 ML VIAL.NEB. NEB PRN (07:45)
[2023-02-22] MEDS ORDERED: ALBUTEROL SO4 2.5/IPRATROPIUM 0.5 INH SOL 3 ML VIAL.NEB. NEB ONE (08:15)
[2023-02-22] MEDS ORDERED: ACETAMINOPHEN 1000 MG/100 ML BAG IVPB PRN (08:30)
[2023-02-22] MEDS ORDERED: methylPREDNISolone NA SUCC 40 MG/1 ML VIAL IVPUSH SCH ×2 (09:00→15:00)
[2023-02-22] MEDS: TAMSULOSIN HCL 0.4 MG CAP PO SCH (09:15)
[2023-02-22] MEDS: metoPROLOL SUCCINATE 25 MG TAB.SR.24H (FP) PO SCH (09:16)
[2023-02-22 09:32] LABS: BASO % 0.2 % (0-2.0); EOS % 0.4 % (0-4.5); HEMATOCRIT 37.3 % (35.4-49); HEMOGLOBIN 12.5 GM/dL (11.7-16.9); LYMPH % 5.2 % (8-40); MCH 32.7 pg (25.7-33.7); MCHC 33.6 g/dl (32.0-35.9); MEAN CELL VOLUME 97.2 fl (80-96); MEAN PLT VOLUME 8.1 fl (7.5-11.1); MONO % 4.3 % (3.8-10.2); NEUT % 89.9 % (42.8-82.8); PLATELET COUNT 107 10^3/uL (134-434); RBC 3.84 M/mm3 (4.00-5.60); WHITE BLOOD COUNT 9.3 K/mm3 (4.0-10.0)
[2023-02-22] MEDS: ENOXAPARIN NA (PORCINE) 40 MG/0.4 ML DISP.SYRIN SQ SCH (09:34)
[2023-02-22] MEDS ORDERED: methylPREDNISolone NA SUCC 125 MG/2 ML VIAL IVPUSH ONE ×2 (09:45→10:00)
[2023-02-22 09:58] LABS: POTASSIUM 3.8 mmol/L (3.5-5.1)
[2023-02-22 10:17] LABS: BLOOD UREA NITROGEN 28.7 mg/dL (7-18)
[2023-02-22 10:18] LABS: MAGNESIUM 2.2 mg/dL (1.8-2.4)
[2023-02-22 10:21] LABS: CREATININE 0.8 mg/dL (0.55-1.3); PHOSPHOROUS 3.1 mg/dL (2.5-4.9)
[2023-02-22] MEDS: ARTIFICIAL TEARS OPHTHALMIC DROPS OU SCH ×4 (11:13→22:54)
[2023-02-22] MEDS: LACTATED RINGERS SOLUTION 1,000 ML/1,000 ML INFUS.BAG IV SCH ×2 (15:54→20:59)
[2023-02-22] MEDS: methylPREDNISolone NA SUCC 40 MG/1 ML VIAL IVPUSH SCH ×2 (15:55→20:59)
[2023-02-22] MEDS: MONTELUKAST NA 10 MG TABLET PO SCH (22:51)
[2023-02-23] MEDS: PIPERACILLIN/TAZOB 3.375 GM 3.375 GM in DEXTROSE 5%-WATER - 50 ML IVPB SCH ×3 (02:05→18:01)
[2023-02-23] MEDS: methylPREDNISolone NA SUCC 40 MG/1 ML VIAL IVPUSH SCH ×4 (03:41→21:17)
[2023-02-23 10:21] LABS: EOS % 0.1 % (0-4.5); HEMATOCRIT 37.5 % (35.4-49); HEMOGLOBIN 12.6 GM/dL (11.7-16.9); LYMPH % 5.6 % (8-40); MCH 32.5 pg (25.7-33.7); MCHC 33.5 g/dl (32.0-35.9); MEAN CELL VOLUME 97.1 fl (80-96); MONO % 4.5 % (3.8-10.2); NEUT % 89.8 % (42.8-82.8); PLATELET COUNT 134 10^3/uL (134-434); RBC 3.86 M/mm3 (4.00-5.60); RDW 14.2 % (11.9-15.9); WHITE BLOOD COUNT 8.2 K/mm3 (4.0-10.0)
[2023-02-23] MEDS: TAMSULOSIN HCL 0.4 MG CAP PO SCH (10:37)
[2023-02-23] MEDS: ARTIFICIAL TEARS OPHTHALMIC DROPS OU SCH ×4 (10:38→21:19)
[2023-02-23] MEDS: ENOXAPARIN NA (PORCINE) 40 MG/0.4 ML DISP.SYRIN SQ SCH (10:38)
[2023-02-23 10:44] LABS: POTASSIUM 3.7 mmol/L (3.5-5.1)
[2023-02-23 10:49] LABS: CALCIUM 7.8 mg/dL (8.5-10.1)
[2023-02-23 10:50] LABS: BLOOD UREA NITROGEN 30.9 mg/dL (7-18); MAGNESIUM 2.2 mg/dL (1.8-2.4)
[2023-02-23 10:53] LABS: CREATININE 0.9 mg/dL (0.55-1.3)
[2023-02-23 10:54] LABS: BILIRUBIN,TOTAL 0.7 mg/dL (0.2-1); TOT PROT 5.6 g/dl (6.4-8.2)
[2023-02-23] MEDS: metoPROLOL SUCCINATE 25 MG TAB.SR.24H (FP) PO SCH (10:58)
[2023-02-23] MEDS: MAGNESIUM OXIDE 400 MG TABLET (FP) PO SCH (10:58)
[2023-02-23] MEDS ORDERED: ALBUTEROL SO4 0.083% IH SOL 2.5 MG/3 ML VIAL.NEB. NEB PRN (11:23)
[2023-02-23] MEDS ORDERED: PANTOPRAZOLE SODIUM 40 MG in SODIUM CHLORIDE 100 ML IVPB SCH (11:30)
[2023-02-23] MEDS: ALBUTEROL SO4 2.5/IPRATROPIUM 0.5 INH SOL 3 ML VIAL.NEB. NEB SCH ×3 (12:49→20:06)
[2023-02-23] MEDS: PANTOPRAZOLE SODIUM 40 MG VIAL IVPUSH SCH (13:11)
[2023-02-23] MEDS: LACTATED RINGERS SOLUTION 1,000 ML/1,000 ML INFUS.BAG IV SCH ×2 (14:42→18:42)
[2023-02-23] MEDS: AMINO ACIDS 4.25%/D5W 1,000 ML IV SCH (18:44)
[2023-02-23] MEDS: MONTELUKAST NA 10 MG TABLET PO SCH (21:17)
[2023-02-24] MEDS: PIPERACILLIN/TAZOB 3.375 GM 3.375 GM in DEXTROSE 5%-WATER - 50 ML IVPB SCH ×3 (03:11→17:55)
[2023-02-24] MEDS: methylPREDNISolone NA SUCC 40 MG/1 ML VIAL IVPUSH SCH ×3 (03:16→15:01)
[2023-02-24] MEDS: ALBUTEROL SO4 2.5/IPRATROPIUM 0.5 INH SOL 3 ML VIAL.NEB. NEB SCH ×3 (07:43→15:18)
[2023-02-24] MEDS: TAMSULOSIN HCL 0.4 MG CAP PO SCH (08:44)
[2023-02-24 09:44] LABS: BASO % 0.1 % (0-2.0); HEMATOCRIT 33.1 % (35.4-49); HEMOGLOBIN 11.2 GM/dL (11.7-16.9); LYMPH % 8.2 % (8-40); MCH 32.8 pg (25.7-33.7); MCHC 33.7 g/dl (32.0-35.9); MEAN CELL VOLUME 97.3 fl (80-96); MEAN PLT VOLUME 7.9 fl (7.5-11.1); MONO % 12.1 % (3.8-10.2); NEUT % 79.6 % (42.8-82.8); PLATELET COUNT 135 10^3/uL (134-434); RDW 13.7 % (11.9-15.9); WHITE BLOOD COUNT 8.6 K/mm3 (4.0-10.0)
[2023-02-24] MEDS: ARTIFICIAL TEARS OPHTHALMIC DROPS OU SCH ×4 (09:48→22:13)
[2023-02-24] MEDS: PANTOPRAZOLE SODIUM 40 MG VIAL IVPUSH SCH (09:48)
[2023-02-24] MEDS: LACTATED RINGERS SOLUTION 1,000 ML/1,000 ML INFUS.BAG IV SCH (09:51)
[2023-02-24 10:02] LABS: POTASSIUM 3.5 mmol/L (3.5-5.1)
[2023-02-24] MEDS: MAGNESIUM OXIDE 400 MG TABLET (FP) PO SCH (10:09)
[2023-02-24] MEDS: metoPROLOL SUCCINATE 25 MG TAB.SR.24H (FP) PO SCH (10:09)
[2023-02-24 10:14] LABS: CALCIUM 7.9 mg/dL (8.5-10.1)
[2023-02-24 10:15] LABS: ALBUMIN 1.9 g/dl (3.4-5.0); MAGNESIUM 2.4 mg/dL (1.8-2.4)
[2023-02-24 10:18] LABS: CREATININE 0.8 mg/dL (0.55-1.3)
[2023-02-24 10:19] LABS: BILIRUBIN,TOTAL 0.4 mg/dL (0.2-1)
[2023-02-24 11:14] LABS: ARTERIAL BLD GAS O2 SATURATION 97.4 % (95-98); ARTERIAL BLOOD GAS BASE EXCESS 6.1 mmol/L (-2-2); ARTERIAL BLOOD GAS PO2 93.6 mmHg (80-100); ARTERIAL BLOOD GAS pH 7.454 (7.350-7.450)
[2023-02-24 11:15] LABS: ALLENS TEST POSITIVE
[2023-02-24] MEDS ORDERED: PIPERACILLIN/TAZOBACTAM 3.375 GM VIAL IVPB ONE (17:53)
[2023-02-24] MEDS: AMINO ACIDS 4.25%/D5W 1,000 ML IV SCH (17:56)
[2023-02-24] MEDS ORDERED: DEXTROSE 5%-0.45% SALINE 1,000 ML IV SCH ×2 (18:15→21:40)
[2023-02-24 18:18] LABS: URINE APPEARANCE CLEAR; URINE BILIRUBIN NEGATIVE (NEGATIVE); URINE COLOR YELLOW; URINE GLUCOSE (UA) NEGATIVE (NEGATIVE); URINE KETONE 1+ (NEGATIVE); URINE LEUK ESTERASE NEGATIVE (NEGATIVE); URINE NITRITE NEGATIVE (NEGATIVE); URINE PROTEIN TRACE (NEGATIVE)
[2023-02-24] MEDS ORDERED: ALBUTEROL SO4 0.083% IH SOL 2.5 MG/3 ML VIAL.NEB. NEB SCH (20:00)
[2023-02-24] MEDS: ENOXAPARIN NA (PORCINE) 40 MG/0.4 ML DISP.SYRIN SQ SCH (20:47)
[2023-02-24] MEDS ORDERED: ALBUTEROL SO4 0.083% IH SOL 2.5 MG/3 ML VIAL.NEB. NEB PRN ×2 (20:52→21:40)
[2023-02-24] MEDS ORDERED: ONDANSETRON 4 MG/2 ML VIAL IVPUSH PRN ×2 (20:52→21:40)
[2023-02-24] MEDS ORDERED: methylPREDNISolone NA SUCC 40 MG/1 ML VIAL IVPUSH SCH (21:00)
[2023-02-24 21:51] LABS: ARTERIAL BLD GAS O2 SATURATION 92.8 % (95-98); ARTERIAL BLOOD GAS BASE EXCESS 1.1 mmol/L (-2-2); ARTERIAL BLOOD GAS PO2 61.1 mmHg (80-100); ARTERIAL BLOOD GAS pH 7.459 (7.350-7.450)
[2023-02-24 21:55] LABS: ALLENS TEST POSITIVE
[2023-02-24] MEDS ORDERED: MONTELUKAST NA 10 MG TABLET PO SCH (22:00)
[2023-02-24] MEDS ORDERED: ARTIFICIAL TEARS OPHTHALMIC DROPS OU SCH (22:00)
[2023-02-24] MEDS: CHLORHEXIDINE GLUCONATE 4% CLEANSER FOR DECOLONIZATION TP SCH (22:14)
[2023-02-24] MEDS: MUPIROCIN 2% TOPICAL OINTMENT FOR DECOLONIZATION NS SCH (22:14)
[2023-02-24] MEDS: MONTELUKAST NA 10 MG TABLET PO SCH (22:14)
[2023-02-25] MEDS ORDERED: ACETAMINOPHEN 1000 MG/100 ML BAG IVPB ONE (00:42)
[2023-02-25] MEDS ORDERED: hydrALAZINE HCL 20 MG/ML VIAL IM PRN ×2 (00:45→00:56)
[2023-02-25] MEDS ORDERED: ACETAMINOPHEN INJECTION 100 ML IVPB ONE (00:56)
[2023-02-25] MEDS: PIPERACILLIN/TAZOB 3.375 GM 3.375 GM in DEXTROSE 5%-WATER - 50 ML IVPB SCH ×3 (01:07→17:22)
[2023-02-25] MEDS ORDERED: PIPERACILLIN/TAZOB 3.375 GM 3.375 GM in DEXTROSE 5%-WATER - 50 ML IVPB SCH (02:00)
[2023-02-25] MEDS: methylPREDNISolone NA SUCC 40 MG/1 ML VIAL IVPUSH SCH ×3 (03:27→08:53)
[2023-02-25 07:23] LABS: HEMATOCRIT 33.2 % (35.4-49); HEMOGLOBIN 11.2 GM/dL (11.7-16.9); MCH 32.7 pg (25.7-33.7); MCHC 33.7 g/dl (32.0-35.9); MEAN PLT VOLUME 8.3 fl (7.5-11.1); PLATELET COUNT 153 10^3/uL (134-434); RBC 3.42 M/mm3 (4.00-5.60); RDW 13.7 % (11.9-15.9)
[2023-02-25 07:26] LABS: WHITE BLOOD COUNT 7.3 K/mm3 (4.0-10.0)
[2023-02-25 07:46] LABS: POTASSIUM 3.6 mmol/L (3.5-5.1)
[2023-02-25 07:57] LABS: BLOOD UREA NITROGEN 35.5 mg/dL (7-18); CALCIUM 7.6 mg/dL (8.5-10.1); MAGNESIUM 2.4 mg/dL (1.8-2.4)
[2023-02-25 08:00] LABS: CREATININE 0.8 mg/dL (0.55-1.3); PHOSPHOROUS 1.8 mg/dL (2.5-4.9)
[2023-02-25 08:01] LABS: BILIRUBIN,TOTAL 0.5 mg/dL (0.2-1)
[2023-02-25] MEDS: ALBUTEROL SO4 0.083% IH SOL 2.5 MG/3 ML VIAL.NEB. NEB SCH ×3 (08:05→16:10)
[2023-02-25] MEDS ORDERED: TAMSULOSIN HCL 0.4 MG CAP PO SCH (08:30)
[2023-02-25 08:38] LABS: ANISOCYTOSIS 0; MACROCYTOSIS 0
[2023-02-25] MEDS: TAMSULOSIN HCL 0.4 MG CAP PO SCH (08:53)
[2023-02-25] MEDS: ENOXAPARIN NA (PORCINE) 40 MG/0.4 ML DISP.SYRIN SQ SCH (09:10)
[2023-02-25] MEDS: PANTOPRAZOLE SODIUM 40 MG VIAL IVPUSH SCH (09:10)
[2023-02-25] MEDS: MUPIROCIN 2% TOPICAL OINTMENT FOR DECOLONIZATION NS SCH ×2 (09:11→21:49)
[2023-02-25] MEDS ORDERED: ENOXAPARIN NA (PORCINE) 40 MG/0.4 ML DISP.SYRIN SQ SCH (10:00)
[2023-02-25] MEDS ORDERED: metoPROLOL SUCCINATE 25 MG TAB.SR.24H (FP) PO SCH (10:00)
[2023-02-25] MEDS ORDERED: PANTOPRAZOLE SODIUM 40 MG VIAL IVPUSH SCH (10:00)
[2023-02-25] MEDS ORDERED: POTASSIUM PHOSPHATE 30 MM in DEXTROSE 5%-WATER - 250 ML IVPB ONE (10:30)
[2023-02-25] MEDS: metoPROLOL SUCCINATE 25 MG TAB.SR.24H (FP) PO SCH (11:35)
[2023-02-25] MEDS: ARTIFICIAL TEARS OPHTHALMIC DROPS OU SCH ×2 (17:22→21:49)
[2023-02-25] MEDS ORDERED: DEXTROSE 5%-0.45% SALINE 1,000 ML IV SCH (17:45)
[2023-02-25] MEDS ORDERED: AMINO ACIDS 4.25%/D5W 1,000 ML IV SCH ×2 (18:15)
[2023-02-25] MEDS: CHLORHEXIDINE GLUCONATE 4% CLEANSER FOR DECOLONIZATION TP SCH (21:49)
[2023-02-25] MEDS: MONTELUKAST NA 10 MG TABLET PO SCH (21:50)
[2023-02-25] MEDS ORDERED: methylPREDNISolone NA SUCC 40 MG/1 ML VIAL IVPUSH SCH (22:00)
[2023-02-26] MEDS: PIPERACILLIN/TAZOB 3.375 GM 3.375 GM in DEXTROSE 5%-WATER - 50 ML IVPB SCH ×3 (01:07→18:26)
[2023-02-26 07:15] LABS: HEMATOCRIT 31.3 % (35.4-49); HEMOGLOBIN 10.8 GM/dL (11.7-16.9); MCH 33.1 pg (25.7-33.7); MCHC 34.6 g/dl (32.0-35.9); MEAN CELL VOLUME 95.8 fl (80-96); MEAN PLT VOLUME 7.9 fl (7.5-11.1); PLATELET COUNT 149 10^3/uL (134-434); RBC 3.27 M/mm3 (4.00-5.60); RDW 13.2 % (11.9-15.9); WHITE BLOOD COUNT 7.6 K/mm3 (4.0-10.0)
[2023-02-26 07:32] LABS: POTASSIUM 3.2 mmol/L (3.5-5.1)
[2023-02-26 07:39] LABS: CALCIUM 7.3 mg/dL (8.5-10.1)
[2023-02-26 07:40] LABS: ALBUMIN 1.8 g/dl (3.4-5.0); BLOOD UREA NITROGEN 27.7 mg/dL (7-18); PHOSPHOROUS 2.2 mg/dL (2.5-4.9)
[2023-02-26 07:41] LABS: BILIRUBIN,TOTAL 0.4 mg/dL (0.2-1)
[2023-02-26 07:42] LABS: TOT PROT 4.8 g/dl (6.4-8.2)
[2023-02-26 07:43] LABS: CREATININE 0.7 mg/dL (0.55-1.3)
[2023-02-26] MEDS: PANTOPRAZOLE SODIUM 40 MG VIAL IVPUSH SCH (10:59)
[2023-02-26] MEDS: ENOXAPARIN NA (PORCINE) 40 MG/0.4 ML DISP.SYRIN SQ SCH (10:59)
[2023-02-26] MEDS: methylPREDNISolone NA SUCC 40 MG/1 ML VIAL IVPUSH SCH (10:59)
[2023-02-26] MEDS ORDERED: POTASSIUM PHOSPHATE 30 MM in SODIUM CHLORIDE 250 ML IVPB ONE (11:00)
[2023-02-26] MEDS: metoPROLOL SUCCINATE 25 MG TAB.SR.24H (FP) PO SCH (11:00)
[2023-02-26] MEDS: ARTIFICIAL TEARS OPHTHALMIC DROPS OU SCH ×3 (11:00→18:25)
[2023-02-26] MEDS: MUPIROCIN 2% TOPICAL OINTMENT FOR DECOLONIZATION NS SCH (11:00)
[2023-02-26] MEDS ORDERED: FUROSEMIDE 40 MG/4 ML INJECTABLE VIAL IVPUSH ONE (13:20)
[2023-02-26] MEDS: TAMSULOSIN HCL 0.4 MG CAP PO SCH (13:25)
[2023-02-26] MEDS ORDERED: ONDANSETRON 4 MG/2 ML VIAL IVPUSH PRN (17:30)
[2023-02-26] MEDS ORDERED: ALBUTEROL SO4 0.083% IH SOL 2.5 MG/3 ML VIAL.NEB. NEB PRN (17:30)
[2023-02-26] MEDS ORDERED: hydrALAZINE HCL 20 MG/ML VIAL IM PRN (17:30)
[2023-02-26] MEDS ORDERED: AMINO ACIDS 4.25%/D5W 1,000 ML IV SCH (18:15)
[2023-02-26] MEDS: MONTELUKAST NA 10 MG TABLET PO SCH (21:10)
[2023-02-27] MEDS: ARTIFICIAL TEARS OPHTHALMIC DROPS OU SCH ×5 (00:05→21:43)
[2023-02-27] MEDS: PIPERACILLIN/TAZOB 3.375 GM 3.375 GM in DEXTROSE 5%-WATER - 50 ML IVPB SCH ×3 (02:14→18:23)
[2023-02-27 07:16] LABS: HEMATOCRIT 34.8 % (35.4-49); HEMOGLOBIN 12.2 GM/dL (11.7-16.9); MCHC 35.1 g/dl (32.0-35.9); MEAN CELL VOLUME 94.2 fl (80-96); MEAN PLT VOLUME 7.8 fl (7.5-11.1); PLATELET COUNT 212 10^3/uL (134-434); RBC 3.69 M/mm3 (4.00-5.60); RDW 13.7 % (11.9-15.9); WHITE BLOOD COUNT 8.6 K/mm3 (4.0-10.0)
[2023-02-27 07:44] LABS: POTASSIUM 3.2 mmol/L (3.5-5.1)
[2023-02-27 07:47] LABS: CALCIUM 7.3 mg/dL (8.5-10.1)
[2023-02-27 07:48] LABS: BLOOD UREA NITROGEN 29.1 mg/dL (7-18)
[2023-02-27 07:51] LABS: CREATININE 0.7 mg/dL (0.55-1.3); PHOSPHOROUS 2.7 mg/dL (2.5-4.9)
[2023-02-27 07:52] LABS: BILIRUBIN,TOTAL 0.6 mg/dL (0.2-1); TOT PROT 5.2 g/dl (6.4-8.2)
[2023-02-27] MEDS: ENOXAPARIN NA (PORCINE) 40 MG/0.4 ML DISP.SYRIN SQ SCH (10:39)
[2023-02-27] MEDS: PANTOPRAZOLE SODIUM 40 MG VIAL IVPUSH SCH (10:39)
[2023-02-27] MEDS: TAMSULOSIN HCL 0.4 MG CAP PO SCH (10:40)
[2023-02-27] MEDS: methylPREDNISolone NA SUCC 40 MG/1 ML VIAL IVPUSH SCH (10:40)
[2023-02-27] MEDS ORDERED: FUROSEMIDE 40 MG/4 ML INJECTABLE VIAL IVPUSH ONE (13:16)
[2023-02-27] MEDS ORDERED: POTASSIUM CHLORIDE ORAL LIQUID 20 MEQ/15 ML PO ONE (15:00)
[2023-02-27] MEDS: MONTELUKAST NA 10 MG TABLET PO SCH (21:42)
[2023-02-28] MEDS: PIPERACILLIN/TAZOB 3.375 GM 3.375 GM in DEXTROSE 5%-WATER - 50 ML IVPB SCH ×3 (01:00→17:53)
[2023-02-28 07:36] LABS: HEMATOCRIT 36.1 % (35.4-49); HEMOGLOBIN 12.5 GM/dL (11.7-16.9); MCHC 34.6 g/dl (32.0-35.9); MEAN CELL VOLUME 95.4 fl (80-96); MEAN PLT VOLUME 7.9 fl (7.5-11.1); PLATELET COUNT 237 10^3/uL (134-434); RBC 3.78 M/mm3 (4.00-5.60); RDW 13.8 % (11.9-15.9); WHITE BLOOD COUNT 9.9 K/mm3 (4.0-10.0)
[2023-02-28 07:47] LABS: POTASSIUM 3.4 mmol/L (3.5-5.1)
[2023-02-28 07:57] LABS: PHOSPHOROUS 2.6 mg/dL (2.5-4.9)
[2023-02-28 07:58] LABS: BLOOD UREA NITROGEN 31.4 mg/dL (7-18); CREATININE 0.8 mg/dL (0.55-1.3)
[2023-02-28 07:59] LABS: BILIRUBIN,TOTAL 0.6 mg/dL (0.2-1); TOT PROT 5.2 g/dl (6.4-8.2)
[2023-02-28 08:12] LABS: CALCIUM 8.1 mg/dL (8.5-10.1)
[2023-02-28] MEDS: TAMSULOSIN HCL 0.4 MG CAP PO SCH (09:31)
[2023-02-28] MEDS: ENOXAPARIN NA (PORCINE) 40 MG/0.4 ML DISP.SYRIN SQ SCH (09:31)
[2023-02-28] MEDS: ARTIFICIAL TEARS OPHTHALMIC DROPS OU SCH ×4 (09:32→21:42)
[2023-02-28] MEDS: PANTOPRAZOLE SODIUM 40 MG VIAL IVPUSH SCH (10:23)
[2023-02-28 17:46] VITALS: BMI 28.8
[2023-02-28] MEDS: MONTELUKAST NA 10 MG TABLET PO SCH (21:42)
[2023-03-01] MEDS: PIPERACILLIN/TAZOB 3.375 GM 3.375 GM in DEXTROSE 5%-WATER - 50 ML IVPB SCH ×3 (03:30→17:40)
[2023-03-01 05:48] VITALS: RESP 18
[2023-03-01 07:36] LABS: HEMOGLOBIN 11.6 GM/dL (11.7-16.9); MCH 32.8 pg (25.7-33.7); MCHC 34.2 g/dl (32.0-35.9); MEAN CELL VOLUME 95.7 fl (80-96); MEAN PLT VOLUME 7.6 fl (7.5-11.1); PLATELET COUNT 229 10^3/uL (134-434); RBC 3.55 M/mm3 (4.00-5.60); RDW 13.7 % (11.9-15.9); WHITE BLOOD COUNT 9.3 K/mm3 (4.0-10.0)
[2023-03-01 07:59] LABS: POTASSIUM 3.6 mmol/L (3.5-5.1)
[2023-03-01 08:04] LABS: CALCIUM 7.8 mg/dL (8.5-10.1); MAGNESIUM 2.2 mg/dL (1.8-2.4)
[2023-03-01 08:07] LABS: CREATININE 0.7 mg/dL (0.55-1.3); PHOSPHOROUS 2.5 mg/dL (2.5-4.9)
[2023-03-01] MEDS: ENOXAPARIN NA (PORCINE) 40 MG/0.4 ML DISP.SYRIN SQ SCH (10:01)
[2023-03-01] MEDS: PANTOPRAZOLE SODIUM 40 MG VIAL IVPUSH SCH (10:01)
[2023-03-01] MEDS: TAMSULOSIN HCL 0.4 MG CAP PO SCH (10:01)
[2023-03-01] MEDS: ARTIFICIAL TEARS OPHTHALMIC DROPS OU SCH ×4 (10:08→21:17)
[2023-03-01] MEDS: MONTELUKAST NA 10 MG TABLET PO SCH (21:17)
[2023-03-02] MEDS: PIPERACILLIN/TAZOB 3.375 GM 3.375 GM in DEXTROSE 5%-WATER - 50 ML IVPB SCH ×3 (01:00→17:19)
[2023-03-02 07:23] LABS: HEMOGLOBIN 11.6 GM/dL (11.7-16.9); MCH 32.6 pg (25.7-33.7); MEAN CELL VOLUME 95.9 fl (80-96); MEAN PLT VOLUME 7.7 fl (7.5-11.1); PLATELET COUNT 220 10^3/uL (134-434); RBC 3.55 M/mm3 (4.00-5.60); RDW 14.2 % (11.9-15.9); WHITE BLOOD COUNT 9.9 K/mm3 (4.0-10.0)
[2023-03-02 07:42] LABS: POTASSIUM 3.7 mmol/L (3.5-5.1)
[2023-03-02 07:45] LABS: CALCIUM 7.4 mg/dL (8.5-10.1)
[2023-03-02 07:46] LABS: BLOOD UREA NITROGEN 24.6 mg/dL (7-18)
[2023-03-02 07:49] LABS: CREATININE 0.7 mg/dL (0.55-1.3)
[2023-03-02] MEDS: ENOXAPARIN NA (PORCINE) 40 MG/0.4 ML DISP.SYRIN SQ SCH (10:56)
[2023-03-02] MEDS: TAMSULOSIN HCL 0.4 MG CAP PO SCH (10:56)
[2023-03-02] MEDS: PANTOPRAZOLE SODIUM 40 MG VIAL IVPUSH SCH (10:57)
[2023-03-02] MEDS: ARTIFICIAL TEARS OPHTHALMIC DROPS OU SCH ×4 (10:57→21:18)
[2023-03-02 11:53] LABS: BILIRUBIN,DIRECT 0.2 mg/dL (0.0-0.2)
[2023-03-02 11:55] LABS: BILIRUBIN,TOTAL 0.6 mg/dL (0.2-1); TOT PROT 4.8 g/dl (6.4-8.2)
[2023-03-02] MEDS: BACITRACIN ZINC 15 GM TUBE TOPICAL OINTMENT TP SCH (14:14)
[2023-03-02] MEDS: MONTELUKAST NA 10 MG TABLET PO SCH (21:18)
[2023-03-03] MEDS: PIPERACILLIN/TAZOB 3.375 GM 3.375 GM in DEXTROSE 5%-WATER - 50 ML IVPB SCH (03:11)
[2023-03-03 07:52] LABS: HEMATOCRIT 34.2 % (35.4-49); HEMOGLOBIN 11.8 GM/dL (11.7-16.9); MCH 32.9 pg (25.7-33.7); MCHC 34.3 g/dl (32.0-35.9); MEAN CELL VOLUME 95.9 fl (80-96); MEAN PLT VOLUME 7.9 fl (7.5-11.1); PLATELET COUNT 239 10^3/uL (134-434); RBC 3.57 M/mm3 (4.00-5.60); RDW 13.8 % (11.9-15.9)
[2023-03-03 07:56] LABS: POTASSIUM 3.8 mmol/L (3.5-5.1)
[2023-03-03 08:01] LABS: ALBUMIN 2.1 g/dl (3.4-5.0); BLOOD UREA NITROGEN 21.9 mg/dL (7-18); CALCIUM 8.1 mg/dL (8.5-10.1); MAGNESIUM 2.2 mg/dL (1.8-2.4)
[2023-03-03 08:04] LABS: CREATININE 0.7 mg/dL (0.55-1.3); PHOSPHOROUS 2.7 mg/dL (2.5-4.9)
[2023-03-03 08:05] LABS: BILIRUBIN,TOTAL 0.7 mg/dL (0.2-1); TOT PROT 5.2 g/dl (6.4-8.2)
[2023-03-03] MEDS: PANTOPRAZOLE SODIUM 40 MG VIAL IVPUSH SCH (09:56)
[2023-03-03] MEDS: TAMSULOSIN HCL 0.4 MG CAP PO SCH (09:56)
[2023-03-03] MEDS: ENOXAPARIN NA (PORCINE) 40 MG/0.4 ML DISP.SYRIN SQ SCH (09:56)
[2023-03-03] MEDS: ARTIFICIAL TEARS OPHTHALMIC DROPS OU SCH ×3 (10:20→17:44)
[2023-03-03] MEDS: BACITRACIN ZINC 15 GM TUBE TOPICAL OINTMENT TP SCH (10:28)
[2023-03-03 15:12] VITALS: BP 117/63; PULSE 74; TEMP 98.6
== END 2023-03-03 21:26 | disposition left against medical advice (07) | DRG 397 ==
LOC: JER 12:04 → INTOOBSV 17:16 → JERBED 17:16 → UNDOADMOB 17:16 → JERBED 18:22 → J8W 19:32 → OBSVTOIN 02-23 09:58 → J4W 02-24 11:56 → JICU 02-24 20:19 → J4W 02-26 17:19
PROVIDERS: ADMIT Family Medicine; ATTEND Internal Medicine
PROC: 3E1M48Z Irrigation of Peritoneal Cavity using Irrigating Substance, Percutaneous Endoscopic Approach (ICD-10-PCS; 2023-02-20)
PROC: 0DTJ4ZZ Resection of Appendix, Percutaneous Endoscopic Approach (ICD-10-PCS; principal; 2023-02-20 10:00)
DX: K35.33 Acute appendicitis with perforation, localized peritonitis, and gangrene, with abscess (principal); J18.9 Pneumonia, unspecified organism; J96.01 Acute respiratory failure with hypoxia; K56.7 Ileus, unspecified; K91.89 Other postprocedural complications and disorders of digestive system; J98.11 Atelectasis; E87.20 Acidosis, unspecified; J45.901 Unspecified asthma with (acute) exacerbation; B96.20 Unspecified Escherichia coli [E. coli] as the cause of diseases classified elsewhere; Y83.9 Surgical procedure, unspecified as the cause of abnormal reaction of the patient, or of later complication, without mention of misadventure at the time of the procedure; E87.70 Fluid overload, unspecified; N40.0 Benign prostatic hyperplasia without lower urinary tract symptoms; I10 Essential (primary) hypertension; R33.9 Retention of urine, unspecified
CPT/HCPCS: 0241U-QW; 36415; 36600; 70450-TC; 71045-TC-FY; 74018-TC-FY; 74177-TC; 80048; 80053; 80076; 81003; 82248; 82803; 82962; 83605; 83690; 83735; 84100; 84478; 84484; 85025; 85027; 85610; 85730; 87040; 87070; 87075; 87086; 87186; 87205; 87807; 88304-TC; 93005; 93010; 94010; 94640; 94760; 97116-GP; 97162-GP; 99285-25; G0378; Q9967